=== PATIENT | male | born 1930 | race Caucasian/White ===

== ENCOUNTER 2020-07-06 18:36 | Observation (INO) | payer MEDICARE ==
[2020-07-06 18:51] LABS: Glucose,Whole Blood 148 mg/dL (75-99)
[2020-07-06] MEDS ORDERED: MORPHINE SULFATE 4 MG/ML SYRINGE IVP STA ×2 (18:52→18:53)
--- NOTE | 2020-07-06 19:48 | CT ---
EXAMINATION TYPE: CT angio thor/abd pel aorta DATE OF EXAM: 07/06/2020 COMPARISON: Same-day radiograph. HISTORY: chest pain, dissection CT DLP: 1113.5 mGycm. Automated Exposure Control for Dose Reduction was Utilized. CONTRAST: CTA scan of the thorax, abdomen and pelvis is performed without and with IV Contrast, patient injecte d with 100 mL of Isovue 370. MIPs , sagittal and coronal reformats were generated and reviewed. FINDINGS: CTA: There is mild thoracic aorta atherosclerotic disease without evidence of dissection, aneurysm or fracture. There is moderate atherosclerotic disease of the abdominal aorta without dissection, aneurysm or rupt ure. There is mild stenosis of the iliac arteries. Otherwise the celiac artery, SMA, WAYNE, renal and s plenic arteries are grossly intact. There is adequate opacity of the pulmonary arteries without evidence of embolus. LUNGS: The lungs are grossly clear, there is no concerning parenchymal mass or nodule identified. T here is no pleural effusion or pneumothorax seen. The tracheobronchial tree is patent. MEDIASTINUM: There are no greater than 1 cm hilar or mediastinal lymph nodes. No pericardial effusi on is seen. OTHER: No additional significant abnormality is seen. LIVER/GB: No acute abnormality is appreciated. Scattered few low attenuating hepatic foci without horace picious features and most compatible with benign cysts. The largest measure 1.4 cm. PANCREAS: No significant abnormality is seen. SPLEEN: No significant abnormality is seen. ADRENALS: No significant abnormality is seen. KIDNEYS: No acute abnormality is seen. Multiple benign bilateral renal cysts, with the largest measur ing 3.2 cm. BOWEL: No acute abnormality is seen. Colonic diverticulosis without acute diverticulitis. Prior righ t partial colectomy seen. GENITAL ORGANS: No gross abnormality seen. LYMPH NODES: No greater than 1cm abdominal or pelvic lymph nodes are appreciated. OSSEOUS STRUCTURES: No acute abnormality is seen. Moderate L2 compression deformity. Multilevel moder ate to severe lumbar spondylosis. Bilateral hip arthroplasties. OTHER: No significant additional abnormality is seen. IMPRESSION: No acute abnormality of the chest, abdomen or pelvic angiogram. Chronic and incidental findings as above.
--- NOTE | 2020-07-06 19:49 | XR ---
EXAMINATION TYPE: XR chest 1V portable DATE OF EXAM: 07/06/2020 COMPARISON: NONE HISTORY: Chest pain. TECHNIQUE: Single frontal view of the chest is obtained. FINDINGS: There is no focal air space opacity, pleural effusion, or pneumothorax seen. The cardiac silhouette size is within normal limits. The osseous structures are without acute abnormality. Bila teral shoulder arthroplasties seen. IMPRESSION: No acute process.
[2020-07-06 19:55] LABS: Basophils % (A) 1 %; Eosinophils # (A) 0.1 k/uL (0-0.7); Eosinophils % (A) 1 %; HCT 33.7 % (39.0-53.0); HGB 10.8 gm/dL (13.0-17.5); Hypochromasia Slight; Lymphocytes # (A) 2.1 k/uL (1.0-4.8); Lymphocytes % (A) 31 %; MCH 26.5 pg (25.0-35.0); MCHC 31.9 g/dL (31.0-37.0); MCV 82.8 fL (80.0-100.0); Monocytes % (A) 15 %; Neutrophils # (A) 3.4 k/uL (1.3-7.7); Neutrophils % (A) 50 %; Platelet Count 104 k/uL (150-450); RBC 4.07 m/uL (4.30-5.90); RDW 15.7 % (11.5-15.5); WBC 6.8 k/uL (3.8-10.6)
[2020-07-06] MEDS ORDERED: ASPIRIN 81 MG PO STA (20:02)
[2020-07-06 20:04] LABS: Calcium 9.1 mg/dL (8.4-10.2); Magnesium 2.1 mg/dL (1.6-2.3); Potassium 4.2 mmol/L (3.5-5.1)
[2020-07-06 20:05] LABS: Albumin 4.4 g/dL (3.5-5.0); Total Bilirubin 0.4 mg/dL (0.2-1.3); Total Protein 8.6 g/dL (6.3-8.2)
[2020-07-06 20:07] LABS: INR 0.9 (<1.2); Partial Thromboplastin Time 22.7 sec (22.0-30.0); Prothrombin Time 10.1 sec (9.0-12.0)
--- NOTE | 2020-07-06 20:40 | ED ---
Chest Pain HPI - General Chief Complaint: Chest Pain Stated Complaint: MARISOL Time Seen by Provider: 07/06/20 18:51 Source: patient Mode of arrival: ambulatory Limitations: no limitations - History of Present Illness Initial Comments: Is an 89-year-old male with a history of hypertension, hyperlipidemia, diabetes, smoking of present emergency department for chest pain. He states it started about an hour ago. It's substernal and sharp and nonradiating. He states that 10 out of 10. He states he is also been having some shortness of breath. States that this started suddenly. He denies any cough. No fevers or chills. No history of CAD per the patient. No history of PE or DVT. No lower Chevys pain or swelling. On arrival the patient was very diaphoretic and appeared very uncomfortable. He required my immediate attention on arrival. - Related Data Home Medications Medication Instructions Recorded Confirmed Aspirin EC [Ecotrin Low Dose] 81 mg PO DAILY 07/06/20 07/06/20 Enalapril Maleate 2.5 mg PO DAILY 07/06/20 07/06/20 Furosemide [Lasix] 20 mg PO DAILY 07/06/20 07/06/20 Omeprazole 20 mg PO DAILY 07/06/20 07/06/20 Simvastatin [Zocor] 20 mg PO HS 07/06/20 07/06/20 glipiZIDE XL [Glucotrol Xl] 10 mg PO DAILY 07/06/20 07/06/20 Allergies Allergy/AdvReac Type Severity Reaction Status Date / Time Penicillins Allergy Anaphylaxis Verified 07/06/20 20:43 Review of Systems ROS Statement: Those systems with pertinent positive or pertinent negative responses have been documented in the HPI. ROS Other: All systems not noted in ROS Statement are negative. EKG Findings - EKG Comments: EKG Findings:: EKG showing normal sinus rhythm with rate 77. There is no abnormally 7 changes or T-wave inversions. QTC is 454. Other intervals normal. No ectopy. Past Medical History Past Medical History: Asthma, Hypertension History of Any Multi-Drug Resistant Organisms: None Reported Past Surgical History: Orthopedic Surgery Past Psychological History: No Psychological Hx Reported Smoking Status: Current every day smoker Past Alcohol Use History: None Reported Past Drug Use History: None Reported General Exam - General Exam Comments Initial Comments: Constitutional: [Awake alert] Appears uncomfortable and diaphoretic Head: [Normocephalic atraumatic] Eyes: [no conjunctival injection] [No scleral icterus] [EOMI] Neck: [No JVD] [Supple] Heart: [Regular rate rhythm] [normal S1-S2] [no murmurs] Lungs: [Clear to auscultation bilaterally] [No wheezing] [No rales] Abdomen: [Soft] [nondistended] [nontender] Extremities: [Non edematous] DP and radial pulses were intact bilaterally and equal Neuro: [A&Ox3] [No focal neurologic deficits] Psych: [Appropriate mood and affect] Limitations: no limitations Course Vital Signs 07/06/20 18:38 Temperature 98.4 F Pulse Rate 77 Respiratory 18 Rate Blood Pressure 172/72 O2 Sat by Pulse 100 Oximetry Chest Pain MDM - MDM Is an 89-year-old male who presents emergency department for chest pain. The patient was evaluated urgently upon arrival. EKG did not reveal any evidence for STEMI. The patient was sent him for CT which did not reveal any evidence for dissection. The patient was given morphine and started on oxygen with improvement in his symptoms per troponin was found to be negative. He was given aspirin. I spoke with Dr. Bustamante due to his risk factors were going to keep him in the hospital for further evaluation. Family is requesting Dr. Anne for cardiology. Disposition Clinical Impression: Chest pain Disposition: ADMITTED IP TO THIS HOSP Condition: Stable Referrals: Joey Zaragoza MD [Primary Care Provider] - 1-2 days
[2020-07-06] MEDS ORDERED: NITROGLYCERIN SL TABS 0.4 MG TAB SUBLINGUAL PRN (20:46)
[2020-07-06 22:44] LABS: Glucose,Whole Blood 144 mg/dL (75-99)
[2020-07-06] MEDS: INSULIN ASPART (NovoLOG) 100 UNIT/ML VIAL SQ SCH (22:56)
[2020-07-06] MEDS: ATORVASTATIN 10 MG TAB PO SCH (22:56)
[2020-07-07 06:24] LABS: Cholesterol 97 mg/dL (<200); HDL Cholesterol 36 mg/dL (40-60); LDL Cholesterol,Calculated 38 mg/dL (0-99); Triglycerides 117 mg/dL (<150)
[2020-07-07 07:29] LABS: Glucose,Whole Blood 144 mg/dL (75-99)
[2020-07-07] MEDS: INSULIN ASPART (NovoLOG) 100 UNIT/ML VIAL SQ SCH ×4 (07:53→20:18)
[2020-07-07] MEDS: ASPIRIN 81 MG PO SCH (07:55)
[2020-07-07] MEDS: FUROSEMIDE 20 MG TAB PO SCH (07:58)
[2020-07-07] MEDS: lisinopriL 5 MG TAB PO SCH (07:58)
[2020-07-07] MEDS: PANTOPRAZOLE 40 MG TABLET PO SCH (07:58)
[2020-07-07] MEDS ORDERED: NON FORMULARY DRUG (Glipizide Xl 10 MG Tab.Er.24) PO SCH (09:00)
[2020-07-07] MEDS ORDERED: ASPIRIN 325 MG TAB PO SCH (09:00)
--- NOTE | 2020-07-07 10:01 | P.CRDCN ---
History of Present Illness History of present illness: HISTORY OF PRESENTING ILLNESS This is a pleasant 89-year-old male past medical history significant for asthma, diabetes mellitus, hypertension, colon cancer and chronic nicotine dependence. 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 We have been asked to see in consultation for chest pain. The patient is seen and examined sitting up in bed in no acute distress. He states for the previous 2 days he has been experiencing shortness of breath. He states it feels like he cannot take in a deep breath and he has an associated tightness in the midsternal region like someone is wrapping around and squeezing his entire torso. He states the chest discomfort happens when he is trying to catch his breath. The chest pain does not radiate through to the back, down the arms, into the neck or the jaw. He denies associated palpitations, nausea, vomiting or diaphoresis. However the emergency department note states that when he arrived at the hospital yesterday he was complaining of 10 out of 10 pain and was diaphoretic. DIAGNOSTICS EKG reveals sinus mechanism with no acute ST or T wave abnormalities noted. Telemetry tracings indicate sinus mechanism with no acute arrhythmias. Chest xray negative for an acute cardiopulmonary process. CT of the thoracic aorta revealed mild thoracic atherosclerotic disease with no evidence of dissection, aneurysm or rupture. Mild stenosis noted at the iliac arteries and lungs are grossly clear. Laboratory reviewed, cardiac enzymes negative 3, LDL 38, HDL 36, CBC unremarka ble, sodium 138, potassium 4.2, creatinine 1.01, proBNP 138 and magnesium 2.1. Current cardiac medications include Lasix 20 mg daily, simvastatin 20 mg daily, enalapril 2.5 mg daily and aspirin 81 mg daily. REVIEW OF SYSTEMS At the time of my exam: CONSTITUTIONAL: Denies fever or chills. CARDIOVASCULAR: Denies chest pain, shortness of breath, orthopnea, PND or palpitations. RESPIRATORY: Denies cough. GASTROINTESTINAL: Denies abdominal pain, diarrhea, constipation, nausea or vomiting. MUSCULOSKELETAL: Denies myalgias. NEUROLOGIC: Denies numbness, tingling, headacbe or weakness. ENDOCRINE: Denies fatigue, weight change, polydipsia or polyurina. GENITOURINARY: Denies burning, hematuria or urgency with micturation. HEMATOLOGIC: Denies history of anemia or bleeding. PHYSICAL EXAMINATION Blood pressure 120/65 heart rate 65 afebrile and maintaining oxygen saturation on nasal cannula CONSTITUTIONAL: No apparent distress. HEENT: Head is normocephalic. Pupils are equal, round. Sclerae anicteric. Mucous membranes of the mouth are moist. No JVD. No carotid bruit. CHEST EXAMINATION: Inspiratory and expiratory wheezes, scattered rhonchi with no rales. No chest wall tenderness is noted on palpation or with deep breathing. HEART EXAMINATION: Regular rate and rhythm. S1, S2 heard. No murmurs, gallops or rub. ABDOMEN: Soft, nontender. Positive bowel sounds. EXTREMITIES: 2+ peripheral pulses, no lower extremity edema and no calf tenderness. NEUROLOGIC EXAMINATION: Patient is awake, alert and oriented x3. ASSESSMENT Chest pain, pleuritic in nature History of asthma Hypertension Dyslipidemia Diabetes mellitus Chronic daily cigar dependence PLAN An acute coronary event has been ruled out. Pain is atypical for angina. Likely related to underlying pulmonary disease. Obtain 2-D echocardiogram and Doppler study to assess cardiac structure and function. Continue aspirin, atorvastatin, Lasix and lisinopril as previously ordered. Consider initiation of updrafts or inhalers. Thank you kindly for this consultation. Nurse Practitioner note has been reviewed, I agree with a documented findings and plan of care. Patient was seen and examined. Past Medical History Past Medical History: Asthma, Diabetes Mellitus, Hypertension Additional Past Medical History / Comment(s): colon CA, gallstones removed, History of Any Multi-Drug Resistant Organisms: None Reported Past Surgical History: Orthopedic Surgery Additional Past Surgical History / Comment(s): hip, back, shoulder surgeries hernia repair, eye implants Past Anesthesia/Blood Transfusion Reactions: No Reported Reaction Past Psychological History: No Psychological Hx Reported Smoking Status: Current some day smoker Past Alcohol Use History: None Reported Past Drug Use History: None Reported Medications and Allergies Home Medications Medication Instructions Recorded Confirmed Type Aspirin EC [Ecotrin Low Dose] 81 mg PO DAILY 07/06/20 07/06/20 History Enalapril Maleate 2.5 mg PO DAILY 07/06/20 07/06/20 History Furosemide [Lasix] 20 mg PO DAILY 07/06/20 07/06/20 History Omeprazole 20 mg PO DAILY 07/06/20 07/06/20 History Simvastatin [Zocor] 20 mg PO HS 07/06/20 07/06/20 History glipiZIDE XL [Glucotrol Xl] 10 mg PO DAILY 07/06/20 07/06/20 History Allergies Allergy/AdvReac Type Severity Reaction Status Date / Time Penicillins Allergy Anaphylaxis Verified 07/06/20 20:43 Physical Exam Vitals: Vital Signs Temp Pulse Pulse Resp BP BP Pulse Ox 07/07/20 07:00 97.5 F L 65 17 120/65 99 07/07/20 02:00 97.8 F 60 18 127/66 100 07/06/20 21:24 97.7 F 67 18 140/74 99 07/06/20 21:03 98.0 F 65 18 139/84 98 07/06/20 18:38 98.4 F 77 18 172/72 100 Intake and Output 07/06/20 07/07/20 07/07/20 22:59 06:59 14:59 Other: Voiding Method Toilet Toilet # Voids 2 Weight 90.718 kg Results 07/06/20 19:01 07/06/20 19:01 Cardiac Enzymes 07/06/20 07/06/20 07/06/20 Range/Units 19:01 19:01 22:09 AST 29 (17-59) U/L Troponin I <0.012 <0.012 (0.000-0.034) ng/mL 07/07/20 Range/Units 00:42 AST (17-59) U/L Troponin I <0.012 (0.000-0.034) ng/mL Coagulation 07/06/20 Range/Units 19:01 PT 10.1 (9.0-12.0) sec APTT 22.7 (22.0-30.0) sec Lipids 07/07/20 Range/Units 05:14 Triglycerides 117 (<150) mg/dL Cholesterol 97 (<200) mg/dL HDL Cholesterol 36 L (40-60) mg/dL CBC 07/06/20 Range/Units 19:01 WBC 6.8 (3.8-10.6) k/uL RBC 4.07 L (4.30-5.90) m/uL Hgb 10.8 L (13.0-17.5) gm/dL Hct 33.7 L (39.0-53.0) % Plt Count 104 L (150-450) k/uL Comprehensive Metabolic Panel 07/06/20 Range/Units 19:01 Sodium 138 (137-145) mmol/L Potassium 4.2 (3.5-5.1) mmol/L Chloride 104 (98-107) mmol/L Carbon Dioxide 23 (22-30) mmol/L BUN 15 (9-20) mg/dL Creatinine 1.01 (0.66-1.25) mg/dL Glucose 146 H (74-99) mg/dL Calcium 9.1 (8.4-10.2) mg/dL AST 29 (17-59) U/L ALT 12 (4-49) U/L Alkaline Phosphatase 92 (38-126) U/L Total Protein 8.6 H (6.3-8.2) g/dL Albumin 4.4 (3.5-5.0) g/dL Current Medications Generic Name Dose Route Start Last Admin Trade Name Freq PRN Reason Stop Dose Admin Aspirin 81 mg 07/07/20 09:00 07/07/20 07:55 Aspirin 81 Mg PO Not Given DAILY JENNIFER Atorvastatin Calcium 10 mg 07/06/20 21:00 07/06/20 22:56 Atorvastatin 10 Mg Tab PO 10 mg HS JENNIFER Administration Furosemide 20 mg 07/07/20 09:00 07/07/20 07:58 Furosemide 20 Mg Tab PO 20 mg DAILY JENNIFER Administration Insulin Aspart 0 unit 07/06/20 22:45 07/07/20 07:53 Insulin Aspart (Novolog) 100 Unit/Ml Vial SQ Not Given ACHS [facility] Protocol Lisinopril 5 mg 07/07/20 09:00 07/07/20 07:58 Lisinopril 5 Mg Tab PO 5 mg DAILY JENNIFER Administration Nitroglycerin 0.4 mg 07/06/20 20:46 Nitroglycerin Sl Tabs 0.4 Mg Tab SUBLINGUAL Q5M PRN Chest Pain Pantoprazole Sodium 40 mg 07/07/20 07:30 07/07/20 07:58 Pantoprazole 40 Mg Tablet PO 40 mg [id number] JENNIFER Administration Intake and Output 07/06/20 07/07/20 07/07/20 22:59 06:59 14:59 Other: Voiding Method Toilet Toilet # Voids 2 Weight 90.718 kg 07/06/20 19:01 07/06/20 19:01
[2020-07-07] MEDS: methylPREDNISolone SOD SUCCI 40 MG/ML 1 ML VIAL IV SCH ×2 (11:30→20:18)
[2020-07-07] MEDS: ENOXAPARIN 40 MG/0.4 ML SYRINGE SQ SCH (11:31)
[2020-07-07 11:40] LABS: Glucose,Whole Blood 205 mg/dL (75-99)
--- NOTE | 2020-07-07 12:46 | ECHOF ---
Referral Reason:sob MEASUREMENTS -------- HEIGHT: 167.6 cm WEIGHT: 90.7 kg BP: 120/65 RVIDd: 3.1 cm (< 3.3) IVSd: 1.2 cm (0.6 - 1.1) LVIDd: 3.4 cm (3.9 - 5.3) LVPWd: 1.6 cm (0.6 - 1.1) IVSs: 1.7 cm LVIDs: 2.1 cm LVPWs: 1.8 cm LAESV Index (A-L): 11.63 ml/m Ao Diam: 3.7 cm (2.0 - 3.7) AV Cusp: 2.1 cm (1.5 - 2.6) MV E Shaun: 0.71 m/s MV DecT: 220 ms MV A Shaun: 1.10 m/s MV E/A Ratio: 0.64 RAP: 5.00 mmHg RVSP: 21.39 mmHg FINDINGS -------- Sinus rhythm. This was a technically adequate study. The left ventricular size is normal. There is mild concentric left ventricular hypertrophy. Overa ll left ventricular systolic function is normal with, an EF between 55 - 60 %. The diastolic fillin g pattern is normal for the age of the patient 13.41. The right ventricle is normal in size. Normal LA size by volume 22+/-6 ml/m2. The right atrial size is normal. Interatrial and interventricular septum intact. The aortic valve is trileaflet, and appears structurally normal. No aortic stenosis or regurgitation. The mitral valve is normal. There is trace mitral regurgitation. The tricuspid valve appears structurally normal. Mild tricuspid regurgitation present. There is n o evidence of pulmonary hypertension. The right ventricular systolic pressure, as measured by Doppl er, is 21.39mmHg. There is no pulmonic regurgitation present. The aortic root size is normal. IVC Not well visulized. There is no pericardial effusion. CONCLUSIONS -------- 1. This was a technically adequate study. 2. There is mild concentric left ventricular hypertrophy. 3. Overall left ventricular systolic function is normal with, an EF between 55 - 60 %. 4. Normal LA size by volume 22+/-6 ml/m2. 5. The aortic valve is trileaflet, and appears structurally normal. No aortic stenosis or regurgitati on. 6. There is trace mitral regurgitation. 7. Mild tricuspid regurgitation present. 8. There is no pericardial effusion. MOVIE EXTRA: Sybil Del Castillo RDCS
[2020-07-07] MEDS: BUDESONIDE 1 MG/2 ML NEBU INHALATION SCH ×2 (15:14→19:26)
[2020-07-07] MEDS: FORMOTEROL FUMARATE 20 MCG/2 ML NEBU INHALATION SCH ×2 (15:14→19:26)
[2020-07-07] MEDS: IPRATROPIUM-ALBUTEROL 3 ML NEB INHALATION SCH ×3 (15:14→19:26)
[2020-07-07 16:54] LABS: Glucose,Whole Blood 291 mg/dL (75-99)
[2020-07-07 20:16] LABS: Glucose,Whole Blood 267 mg/dL (75-99)
[2020-07-07] MEDS: ATORVASTATIN 10 MG TAB PO SCH (20:18)
--- NOTE | 2020-07-07 23:57 | P.HPIM ---
History of Present Illness H&P Date: 07/07/20 Chief Complaint: Chest pain History of presenting complaint: This is a pleasant 89-year-old patient of Dr. Valdemar Zaragoza. History is obtained by the [id number] at the bedside. Patient been getting short of breath on and off for quite some time. No edema. No fever no chills. No cough. Patient presented with more difficulty breathing. Questionable chest pressure. Patient other forgetful himself. Normally uses a walker to get about. Does smoke a cigar a day. Review of systems: GEN.: Tired EYES: None HEENT: Decreased hearing NECK: None RESPIRATORY: As above CARDIOVASCULAR: As above GASTROINTESTINAL: None GENITOURINARY: None MUSCULOSKELETAL: Joint pains LYMPHATICS: None HEMATOLOGICAL: None PSYCHIATRY: Forgetful NEUROLOGICAL: Uses a walker Past medical history to include: Asthma, diabetes, hypertension, colon cancer, gallstones Social history: Smokes a cigar daily. No alcohol. Retired. Lives with his son and [id number]. Family history: Reviewed, noncontributory to presentation Physical examination: VITAL SIGNS: 98.4, 77, 18, 139/84, 98% on 3 L GENERAL: BMI 32.3, laying in bed, awake. EYES: Pupils equal. Conjunctiva normal. HEENT: External appearance of nose and ears normal, oral cavity grossly normal decreased hearing. NECK: JVD not raised; masses not palpable. HEART: First and second heart sounds are normal; no edema. LUNGS:[ Respiratory rate increased, decreased breaths on probably expiration and wheezing. ABDOMEN: Soft, nontender, liver spleen not palpable, no masses palpable. PSYCH: [Patient is able to answer simple questions MUSCULAR skeletal: Evidence of OA. NEUROLOGICAL: Cranial nerves grossly intact; no facial asymmetry, power and sensation grossly intact. LYMPHATICS: No lymph nodes palpable in the axilla and neck INVESTIGATIONS, reviewed in the clinical context: 2-D echocardiogram-EF 55-60% Chest x-ray film personally reviewed by me-negative for infiltrate EKG tracing personally reviewed by me-normal sinus rhythm Thoracic outlet the computed tomography scan-nonspecific findings. Moderate L2 compression deformity. Severe lumbar spondylosis White count 6.8 hemoglobin 10.8 platelets 104 potassium 4.2 creatinine 1.04 Troponin I 3 negative Coronavirus P/Cr-not detected Assessment and plan: -Acute COPD exacerbation in a long-standing cigar smoker. We'll start the patient on DuoNeb, inhaled and IV steroids. 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 We'll send off for B12 TSH and iron studies -Diabetes mellitus type 2 on oral hypoglycemic. Follow Accu-Cheks. -Essential hypertension-continue Zestril -Hyperlipidemia continue with Lipitor -Chronic gait dysfunction uses a walker Care was discussed with the [id number] by the bedside. Hopefully the patient can be discharged by tomorrow. Questions were answered. Past Medical History Past Medical History: Asthma, Diabetes Mellitus, Hypertension Additional Past Medical History / Comment(s): colon CA, gallstones removed, History of Any Multi-Drug Resistant Organisms: None Reported Past Surgical History: Orthopedic Surgery Additional Past Surgical History / Comment(s): hip, back, shoulder surgeries hernia repair, eye implants Past Anesthesia/Blood Transfusion Reactions: No Reported Reaction Past Psychological History: No Psychological Hx Reported Smoking Status: Current some day smoker Past Alcohol Use History: None Reported Past Drug Use History: None Reported Medications and Allergies Home Medications Medication Instructions Recorded Confirmed Type Aspirin EC [Ecotrin Low Dose] 81 mg PO DAILY 07/06/20 07/06/20 History Enalapril Maleate 2.5 mg PO DAILY 07/06/20 07/06/20 History Furosemide [Lasix] 20 mg PO DAILY 07/06/20 07/06/20 History Omeprazole 20 mg PO DAILY 07/06/20 07/06/20 History Simvastatin [Zocor] 20 mg PO HS 07/06/20 07/06/20 History glipiZIDE XL [Glucotrol Xl] 10 mg PO DAILY 07/06/20 07/06/20 History Allergies Allergy/AdvReac Type Severity Reaction Status Date / Time Penicillins Allergy Anaphylaxis Verified 07/06/20 20:43 Physical Exam Vitals: Vital Signs Temp Pulse Pulse Resp BP BP Pulse Ox 07/07/20 07:00 97.5 F L 65 17 120/65 99 07/07/20 02:00 97.8 F 60 18 127/66 100 07/06/20 21:24 97.7 F 67 18 140/74 99 07/06/20 21:03 98.0 F 65 18 139/84 98 07/06/20 18:38 98.4 F 77 18 172/72 100 Intake and Output 07/06/20 07/07/20 07/07/20 22:59 06:59 14:59 Other: Voiding Method Toilet Toilet # Voids 2 Weight 90.718 kg Results CBC & Chem 7: 07/06/20 19:01 07/06/20 19:01 Labs: Abnormal Lab Results - Last 24 Hours (Table) 07/06/20 07/06/20 07/06/20 Range/Units 18:49 19:01 19:01 RBC 4.07 L (4.30-5.90) m/uL Hgb 10.8 L (13.0-17.5) gm/dL Hct 33.7 L (39.0-53.0) % RDW 15.7 H (11.5-15.5) % Plt Count 104 L (150-450) k/uL Glucose 146 H (74-99) mg/dL POC Glucose (mg/dL) 148 H (75-99) mg/dL Total Protein 8.6 H (6.3-8.2) g/dL HDL Cholesterol (40-60) mg/dL 07/06/20 07/07/20 07/07/20 Range/Units 22:42 05:14 07:28 RBC (4.30-5.90) m/uL Hgb (13.0-17.5) gm/dL Hct (39.0-53.0) % RDW (11.5-15.5) % Plt Count (150-450) k/uL Glucose (74-99) mg/dL POC Glucose (mg/dL) 144 H 144 H (75-99) mg/dL Total Protein (6.3-8.2) g/dL HDL Cholesterol 36 L (40-60) mg/dL Thrombosis Risk Factor Assmnt - Choose All That Apply Any of the Below Risk Factors Present?: Yes Each Factor Represents 1 point: Obesity (BMI >25) Other Risk Factors: Yes Each Risk Factor Represents 3 Points: Age 75 years or older Other congenital or acquired thrombophilia - If yes, enter type in comment: No Thrombosis Risk Factor Assessment Total Risk Factor Score: 4 Thrombosis Risk Factor Assessment Level: Moderate Risk
[2020-07-08] MEDS: methylPREDNISolone SOD SUCCI 40 MG/ML 1 ML VIAL IV SCH (04:29)
[2020-07-08 06:59] LABS: Glucose,Whole Blood 236 mg/dL (75-99)
[2020-07-08] MEDS: BUDESONIDE 1 MG/2 ML NEBU INHALATION SCH (07:15)
[2020-07-08] MEDS: FORMOTEROL FUMARATE 20 MCG/2 ML NEBU INHALATION SCH (07:15)
[2020-07-08] MEDS: IPRATROPIUM-ALBUTEROL 3 ML NEB INHALATION SCH ×2 (07:15→10:50)
[2020-07-08 07:40] VITALS: BP 126/72; RESP 17; TEMP 98.2
[2020-07-08] MEDS: FUROSEMIDE 20 MG TAB PO SCH (08:34)
[2020-07-08] MEDS: ASPIRIN 81 MG PO SCH (08:35)
[2020-07-08] MEDS: ENOXAPARIN 40 MG/0.4 ML SYRINGE SQ SCH (08:35)
[2020-07-08] MEDS: lisinopriL 5 MG TAB PO SCH (08:35)
[2020-07-08] MEDS: INSULIN ASPART (NovoLOG) 100 UNIT/ML VIAL SQ SCH (08:35)
[2020-07-08] MEDS: PANTOPRAZOLE 40 MG TABLET PO SCH (08:35)
[2020-07-08 10:05] LABS: Ferritin 37.5 ng/mL (22.0-322.0)
[2020-07-08 10:15] LABS: % Iron Saturation 7.39 (15.00-50.00)
--- NOTE | 2020-07-08 10:45 | P.PN ---
Subjective HISTORY OF PRESENTING ILLNESS This is a pleasant 89-year-old male past medical history significant for asthma, diabetes mellitus, hypertension, colon cancer and chronic nicotine dependence. Denies prior history of coronary artery disease and does not follow in the office with a register of deeds. He is seen and examined sitting up in bed in no acute distress. He has been started on updraft treatments and IV steroids and overall feels as though his breathing has improved. He denies any symptoms of chest discomfort, worsening shortness of breath, dizziness or palpitations. Blood pressure 126/72 heart rate 92 afebrile maintaining oxygen saturation on room air. Laboratory data reviewed, TSH 0.95. Echocardiogram obtained reveals preserved LV systolic function with ejection fraction 55-60% with mild tricuspid regurgitation. PHYSICAL EXAMINATION CONSTITUTIONAL: No apparent distress. HEENT: Head is normocephalic. Pupils are equal, round. Sclerae anicteric. Mucous membranes of the mouth are moist. No JVD. No carotid bruit. CHEST EXAMINATION: Expiratory wheezes, no rhonchi with no rales. No chest wall tenderness is noted on palpation or with deep breathing. HEART EXAMINATION: Regular rate and rhythm. S1, S2 heard. No murmurs, gallops or rub. EXTREMITIES: 2+ peripheral pulses, no lower extremity edema and no calf tender ness. ASSESSMENT Chest pain, pleuritic in nature History of asthma Hypertension Dyslipidemia Diabetes mellitus Chronic daily cigar dependence PLAN Stable for discharge from a cardiac perspective. Follow-up in the office with Dr. Gibson in 2 weeks. Nurse Practitioner note has been reviewed, I agree with a documented findings and plan of care. Patient was seen and examined. Objective - Vital Signs Vital signs: Vital Signs Temp 98.2 F 07/08/20 07:00 Pulse 92 07/08/20 07:54 Resp 17 07/08/20 07:54 BP 126/72 07/08/20 07:00 Pulse Ox 99 07/08/20 07:00 Intake & Output 07/07/20 07/08/20 07/08/20 18:59 06:59 18:59 Intake Total 400 Balance 400 Intake: Other 400 Other: Voiding Method Toilet Toilet Toilet # Voids 2 1 1 - Labs CBC & Chem 7: 07/06/20 19:01 07/06/20 19:01 Labs: Abnormal Lab Results - Last 24 Hours (Table) 07/07/20 07/07/20 07/07/20 Range/Units 11:39 16:53 20:14 POC Glucose (mg/dL) 205 H 291 H 267 H (75-99) mg/dL Iron (65-175) ug/dL % Saturation (15.00-50.00) 07/08/20 07/08/20 Range/Units 05:19 06:58 POC Glucose (mg/dL) 236 H (75-99) mg/dL Iron 26 L (65-175) ug/dL % Saturation 7.39 L (15.00-50.00)
[2020-07-08 11:01] VITALS: PULSE 93
[2020-07-08 11:12] LABS: Glucose,Whole Blood 326 mg/dL (75-99)
--- NOTE | 2020-07-08 23:03 | P.DS ---
Providers Date of admission: 07/06/20 20:48 Expected date of discharge: 07/08/20 Attending physician: Fred Bustamante Consults: 07/06/20 20:47 Consult Physician Urgent Consulting Provider: Isai Aguilar Consult Reason/Comments: Chest Pain Do you want consulting provider notified?: Already Contacted Primary care physician: Joey [facility]ago[facility] Course: Chief Complaint: Chest pain History of presenting complaint: This is a pleasant 89-year-old patient of Dr. Valdemar Zaragoza. History is obtained by the [id number] at the bedside. Patient been getting short of breath on and off for quite some time. No edema. No fever no chills. No cough. Patient presented with more difficulty breathing. Questionable chest pressure. Patient other forgetful himself. Normally uses a walker to get about. Does smoke a cigar a day. Admitted with COPD exacerbation. Treated with bronchodilators, burst of steroids. Seen by cardiology. Not for any further intervention. Today-breathing greatly improved. Feeling much better. Patient's daughter came to pick him up. Discussed with her. Knifeman: Dr. Gibson from cardiology Past medical history to include: Asthma, diabetes, hypertension, colon cancer, gallstones Social history: Smokes a cigar daily. No alcohol. Retired. Lives with his son and [id number]. Family history: Reviewed, noncontributory to presentation Physical examination: VITAL SIGNS: 98.2, 92, 17, 126/72, 99% on room air GENERAL: Sitting, chair, comfortable. EYES: Pupils equal. Conjunctiva normal. HEENT: External appearance of nose and ears normal, oral cavity grossly normal decreased hearing. NECK: JVD not raised; masses not palpable. HEART: First and second heart sounds are normal; no edema. LUNGS:[ Respiratory rate normal decreased breaths sounds. ABDOMEN: Soft, nontender, liver spleen not palpable, no masses palpable. PSYCH: [Patient is able to answer simple questions MUSCULAR skeletal: Evidence of OA. INVESTIGATIONS, reviewed in the clinical context: I and 26 TIBC 352% saturation 7.39 ferritin 37.5 B12 632 TSH 0.95 2-D echocardiogram-EF 55-60% Chest x-ray film personally reviewed by me-negative for infiltrate EKG tracing personally reviewed by me-normal sinus rhythm Thoracic outlet the computed tomography scan-nonspecific findings. Moderate L2 compression deformity. Severe lumbar spondylosis White count 6.8 hemoglobin 10.8 platelets 104 potassium 4.2 creatinine 1.04 Troponin I 3 negative Coronavirus P/Cr-not detected Assessment and plan: -Acute COPD exacerbation in a long-standing cigar smoker. He responded well to DuoNeb to steroids. 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 Mild iron deficiency anemia. Add iron supplement -Diabetes mellitus type 2 on oral hypoglycemic. Follow Accu-Cheks. -Essential hypertension-continue Zestril -Hyperlipidemia continue with Lipitor -Chronic gait dysfunction uses a walker Disposition: Home Patient Condition at Discharge: Stable Plan - Discharge Summary Discharge Rx Participant: No New Discharge Prescriptions: New Ipratropium-Albuterol Nebulize [Duoneb 0.5 mg-3 mg/3 ml Soln] 3 ml INHALATION BID #60 ml Atorvastatin [Lipitor] 10 mg PO HS #30 tab predniSONE 0 mg PO DIRECTED #10 tab Continue glipiZIDE XL [Glucotrol XL] 10 mg PO DAILY Omeprazole 20 mg PO DAILY Furosemide [Lasix] 20 mg PO DAILY Enalapril Maleate 2.5 mg PO DAILY Aspirin EC [Ecotrin Low Dose] 81 mg PO DAILY Discontinued Simvastatin [Zocor] 20 mg PO HS Discharge Medication List Aspirin EC [Ecotrin Low Dose] 81 mg PO DAILY 07/06/20 [History] Enalapril Maleate 2.5 mg PO DAILY 07/06/20 [History] Furosemide [Lasix] 20 mg PO DAILY 07/06/20 [History] Omeprazole 20 mg PO DAILY 07/06/20 [History] glipiZIDE XL [Glucotrol XL] 10 mg PO DAILY 07/06/20 [History] Atorvastatin [Lipitor] 10 mg PO HS #30 tab 07/08/20 [Rx] Ipratropium-Albuterol Nebulize [Duoneb 0.5 mg-3 mg/3 ml Soln] 3 ml INHALATION BID #60 ml 07/08/20 [Rx] predniSONE 0 mg PO DIRECTED #10 tab 07/08/20 [Rx] Follow up Appointment(s)/Referral(s): Joey Zaragoza MD [Primary Care Provider] - 1-2 days Lela Gibson MD [STAFF PHYSICIAN] - 2 Weeks [facility] [NON-STAFF] - As Needed Patient Instructions/Handouts: Chest Pain (DC), COPD (Chronic Obstructive Pulmonary Disease) (DC) Activity/Diet/Wound Care/Special Instructions: daughter with fern picker pt later today after work Discharge/Stand Alone Forms: Who Do I Call?, Help In The Home Discharge Disposition: HOME SELF-CARE
== END 2020-07-08 12:10 | disposition home or self-care (01) ==
LOC: EC 18:36 → UNDOADMIN 20:28 → 4SSUR 20:28 → 6NMEDSUR 20:48 → 4SSUR 21:16 → 6NMEDSUR 21:16
PROVIDERS: ADMIT Hospitalist; ATTEND Hospitalist
DX: J44.1 Chronic obstructive pulmonary disease with (acute) exacerbation (principal); F17.290 Nicotine dependence, other tobacco product, uncomplicated; H91.90 Unspecified hearing loss, unspecified ear; D50.9 Iron deficiency anemia, unspecified; D69.6 Thrombocytopenia, unspecified; R26.9 Unspecified abnormalities of gait and mobility; E11.9 Type 2 diabetes mellitus without complications; I10 Essential (primary) hypertension; E78.5 Hyperlipidemia, unspecified; Z85.038 Personal history of other malignant neoplasm of large intestine; R61 Generalized hyperhidrosis; Z87.19 Personal history of other diseases of the digestive system; E66.9 Obesity, unspecified; Z68.32 Body mass index [BMI] 32.0-32.9, adult; Z79.82 Long term (current) use of aspirin; Z79.899 Other long term (current) drug therapy; Z79.84 Long term (current) use of oral hypoglycemic drugs; Z88.0 Allergy status to penicillin; Z20.822 Contact with and (suspected) exposure to COVID-19
CPT/HCPCS: 96376 ×2; 96372 ×2; 96375; 93005 ×2; 96374; 99285; 36415; 94640 ×4; 94760; 93306; 86900; 86901; 83880; 80061; 80053; 84443; 82607; 82728; 83540; 83550; 83690; 83735; 84484 ×2; 85025; 85610; 85730; 86850; 87635; 71045; 71275; 74174; G0378 ×3; J2270; J2920 ×2; J1650 ×2; Q9967

== ENCOUNTER 2020-08-28 18:23 | Emergency (ER) | payer MEDICARE ==
[2020-08-28 18:33] VITALS: TEMP 98
[2020-08-28] MEDS ORDERED: ASPIRIN 81 MG PO STA (19:04)
[2020-08-28] MEDS ORDERED: NITROGLYCERIN SL TABS 0.4 MG TAB SUBLINGUAL STA (19:08)
[2020-08-28] MEDS ORDERED: MORPHINE SULFATE 2 MG/ML SYRINGE IVP STA (19:22)
--- NOTE | 2020-08-28 19:36 | ED ---
Extremity Problem HPI - General Chief complaint: Extremity Problem,Nontraumatic Stated complaint: Chest Pain/Arm Pain Time Seen by Provider: 08/28/20 19:03 Source: EMS Mode of arrival: EMS Limitations: no limitations - History of Present Illness Initial comments: 89yo male with hx of DM, HTN, asthma, daily cigar use, recent echo with EF >50%, no hx of stents/CAD, CTA is 07/18 no aneursyms of the chest presenting to the ER today for cc of left shoulder pain and left left sided chest pain. Pt states that today he developed left arm pain and pain over the left side of the chest that is sharp in nature, no radiation to the back-no pressure, no jaw pain, nausea, vomiting, abdominal pain, no leg or arm swelling or hemoptysis. Patient states his left arm also is very painful and he cannot lift it more than a few inches before extreme pain in the left shoulder. Denies falls or known trauma. Denies redness, fevers, recent surgeries. Patient does have history of previous left shoulder surgery. Patient states he was just lying in bed when this pain began. Patient denies experiencing this in the past. Patient states that the left arm also feeling tingly and funny. He denies vision/speech changes, leg weakness, headache, neck pain or additional complaints. Upon arrival pt tearful and appears uncomfortable. Patient has had recent exposure to covid 19. - Related Data Home Medications Medication Instructions Recorded Confirmed Aspirin EC [Ecotrin Low Dose] 81 mg PO DAILY 07/06/20 07/06/20 Enalapril Maleate 2.5 mg PO DAILY 07/06/20 07/06/20 Furosemide [Lasix] 20 mg PO DAILY 07/06/20 07/06/20 Omeprazole 20 mg PO DAILY 07/06/20 07/06/20 glipiZIDE XL [Glucotrol XL] 10 mg PO DAILY 07/06/20 07/06/20 Previous Rx's Medication Instructions Recorded Albuterol Inhaler [Ventolin Hfa 1 puff INHALATION RT-QID PRN #1 07/08/20 Inhaler] puff Atorvastatin [Lipitor] 10 mg PO HS #30 tab 07/08/20 Budesonide-Formot 160-4.5 Mcg 1 puff INHALATION BID #1 inhaler 07/08/20 [Symbicort 160-4.5 Mcg Inhaler] Ipratropium-Albuterol Nebulize 3 ml INHALATION BID #60 ml 07/08/20 [Duoneb 0.5 mg-3 mg/3 ml Soln] predniSONE 0 mg PO DIRECTED #10 tab 07/08/20 Allergies Allergy/AdvReac Type Severity Reaction Status Date / Time Penicillins Allergy Anaphylaxis Verified 08/28/20 18:33 Review of Systems ROS Statement: Those systems with pertinent positive or pertinent negative responses have been documented in the HPI. ROS Other: All systems not noted in ROS Statement are negative. Past Medical History Past Medical History: Asthma, Diabetes Mellitus, Hypertension Additional Past Medical History / Comment(s): colon CA, gallstones removed, History of Any Multi-Drug Resistant Organisms: None Reported Past Surgical History: Orthopedic Surgery Additional Past Surgical History / Comment(s): hip, back, shoulder surgeries hernia repair, eye implants Past Anesthesia/Blood Transfusion Reactions: No Reported Reaction Past Psychological History: No Psychological Hx Reported Smoking Status: Current every day smoker Past Alcohol Use History: None Reported Past Drug Use History: None Reported General Exam - General Exam Comments Initial Comments: General: The patient is awake and alert, in no distress Eye: +3 mm pupils are equal, round and reactive to light, extra-ocular movements are intact. No nystagmus. There is normal conjunctiva bilaterally. No signs of icterus. Ears, nose, mouth and throat: There are moist mucous membranes and no oral lesions. Neck: The neck is supple, there is no tenderness or JVD. Cardiovascular: There is a regular rate and rhythm. No murmur, rub or gallop is appreciated. Respiratory: Lungs are clear to auscultation, respirations are non-labored, breath sounds are equal. No wheezes, stridor, rales, or rhonchi. Gastrointestinal: Soft, non-distended, non-tender abdomen without masses or organomegaly noted. There is no rebound or guarding present. No CVA tenderness. No pulsatile masses Musculoskeletal: Etreme pain with overhead ROM, palpation to AC joint/upper humerus and over adjacent anterior chest wall. wincing with pain, cries out. scar over right shoulder no redness or swelling. Normal ROM, no tenderness. Strength 5/5 at digits/hand. Sensation slightly different in left arm in comparison with Radial pulses equal bilaterally 2+. Neurological: A&O x 3. CN II-XII intact grossly, There are no obvious motor or sensory deficits. Coordination appears grossly intact. Speech is normal. Skin: Skin is warm and dry and no rashes or lesions are noted. Psychiatric: Cooperative, appropriate mood & affect, normal judgment. Limitations: no limitations Course Vital Signs 08/28/20 08/28/20 08/28/20 18:28 20:00 21:00 Temperature 98.0 F Pulse Rate 70 71 63 Respiratory 20 18 18 Rate Blood Pressure 173/80 135/71 145/66 O2 Sat by Pulse 99 99 99 Oximetry 08/28/20 22:00 Temperature Pulse Rate 61 Respiratory 18 Rate Blood Pressure 113/61 O2 Sat by Pulse Oximetry - Reevaluation(s) Reevaluation #1: pt moving arm freely now, he states "i think it went back in". Patietn xr were negataive for dislocation. 08/28/20 22:35 Medical Decision Making - Medical Decision Making 89-year-old male presenting for left shoulder pain. On arrival patient refuses to even move arm and inch upward he states is very tender over the shoulder and upper humerus. Imaging studies reveal no acute osseous process. CT angiography no dissection or aneurysm. Patient's pain is very reproducible even to the chest wall. It appears very musculoskeletal by attending evaluate patient agrees. After the imaging patient states that the pain had resolved completely can fully move the arm and the pain had gone away. At this time given normal EKG normal cardiac enzyme with what appeared to be noncardiac related chest pain and arm pain patient be discharged with primary care follow-up and return for any worsening symptoms patient is agreeable to this care plan and prefers discharge at this time. Dr Arellano is agreeable to this care plan and discharge. Ventricular rate 68 bpm, RI interval 162 ms, QR christian 72 ms, QT/QTC 41 4/440 ms. This is normal sinus with no ST elevation or depression appreciated. - Lab Data Result diagrams: 08/28/20 19:13 08/28/20 19:13 Lab Results 08/28/20 08/28/20 08/28/20 Range/Units 19:13 19:13 19:13 WBC 5.0 (3.8-10.6) k/uL RBC 4.12 L (4.30-5.90) m/uL Hgb 10.8 L (13.0-17.5) gm/dL Hct 34.2 L (39.0-53.0) % MCV 82.8 (80.0-100.0) fL MCH 26.3 (25.0-35.0) pg MCHC 31.7 (31.0-37.0) g/dL RDW 16.0 H (11.5-15.5) % Plt Count 90 L (150-450) k/uL MPV 9.0 Neutrophils % 46 % Lymphocytes % 33 % Monocytes % 16 % Eosinophils % 2 % Basophils % 1 % Neutrophils # 2.3 (1.3-7.7) k/uL Lymphocytes # 1.6 (1.0-4.8) k/uL Monocytes # 0.8 (0-1.0) k/uL Eosinophils # 0.1 (0-0.7) k/uL Basophils # 0.0 (0-0.2) k/uL Manual Slide Review Performed Hypochromasia Slight Anisocytosis Slight Ovalocytes Present PT 10.1 (9.0-12.0) sec INR 0.9 (<1.2) APTT 22.8 (22.0-30.0) sec Sodium 137 (137-145) mmol/L Potassium 4.6 (3.5-5.1) mmol/L Chloride 108 H (98-107) mmol/L Carbon Dioxide 22 (22-30) mmol/L Anion Gap 7 mmol/L BUN 14 (9-20) mg/dL Creatinine 1.15 (0.66-1.25) mg/dL Est GFR (CKD-EPI)AfAm 65 (>60 ml/min/1.73 sqM) Est GFR (CKD-EPI)NonAf 57 (>60 ml/min/1.73 sqM) Glucose 104 H (74-99) mg/dL Calcium 9.4 (8.4-10.2) mg/dL Magnesium 1.9 (1.6-2.3) mg/dL Total Bilirubin 0.5 (0.2-1.3) mg/dL AST 34 (17-59) U/L ALT 18 (4-49) U/L Alkaline Phosphatase 120 (38-126) U/L Troponin I (0.000-0.034) ng/mL NT-Pro-B Natriuret Pep pg/mL Total Protein 8.5 H (6.3-8.2) g/dL Albumin 4.5 (3.5-5.0) g/dL Coronavirus (PCR) (Not Detectd) 08/28/20 08/28/20 08/28/20 Range/Units 19:13 19:13 19:33 WBC (3.8-10.6) k/uL RBC (4.30-5.90) m/uL Hgb (13.0-17.5) gm/dL Hct (39.0-53.0) % MCV (80.0-100.0) fL MCH (25.0-35.0) pg MCHC (31.0-37.0) g/dL RDW (11.5-15.5) % Plt Count (150-450) k/uL MPV Neutrophils % % Lymphocytes % % Monocytes % % Eosinophils % % Basophils % % Neutrophils # (1.3-7.7) k/uL Lymphocytes # (1.0-4.8) k/uL Monocytes # (0-1.0) k/uL Eosinophils # (0-0.7) k/uL Basophils # (0-0.2) k/uL Manual Slide Review Hypochromasia Anisocytosis Ovalocytes PT (9.0-12.0) sec INR (<1.2) APTT (22.0-30.0) sec Sodium (137-145) mmol/L Potassium (3.5-5.1) mmol/L Chloride (98-107) mmol/L Carbon Dioxide (22-30) mmol/L Anion Gap mmol/L BUN (9-20) mg/dL Creatinine (0.66-1.25) mg/dL Est GFR (CKD-EPI)AfAm (>60 ml/min/1.73 sqM) Est GFR (CKD-EPI)NonAf (>60 ml/min/1.73 sqM) Glucose (74-99) mg/dL Calcium (8.4-10.2) mg/dL Magnesium (1.6-2.3) mg/dL Total Bilirubin (0.2-1.3) mg/dL AST (17-59) U/L ALT (4-49) U/L Alkaline Phosphatase (38-126) U/L Troponin I <0.012 (0.000-0.034) ng/mL NT-Pro-B Natriuret Pep 131 pg/mL Total Protein (6.3-8.2) g/dL Albumin (3.5-5.0) g/dL Coronavirus (PCR) Not Detected (Not Detectd) Disposition Clinical Impression: Musculoskeletal arm pain Disposition: HOME SELF-CARE Condition: Good Instructions (If sedation given, give patient instructions): Arm Pain (ED) Additional Instructions: Please use medication as discussed. Please follow-up with family doctor in the next 2 days. Please return to emergency room if the symptoms increase or worsen or for any other concerns. Is patient prescribed a controlled substance at d/c from ED?: No Referrals: Joey Zaragoza MD [Primary Care Provider] - 1-2 days Time of Disposition: 22:30
[2020-08-28 19:44] LABS: Anisocytosis Slight; Basophils % (A) 1 %; Eosinophils # (A) 0.1 k/uL (0-0.7); Eosinophils % (A) 2 %; HCT 34.2 % (39.0-53.0); HGB 10.8 gm/dL (13.0-17.5); Hypochromasia Slight; Lymphocytes # (A) 1.6 k/uL (1.0-4.8); Lymphocytes % (A) 33 %; MCH 26.3 pg (25.0-35.0); MCHC 31.7 g/dL (31.0-37.0); MCV 82.8 fL (80.0-100.0); Monocytes # (A) 0.8 k/uL (0-1.0); Monocytes % (A) 16 %; Neutrophils # (A) 2.3 k/uL (1.3-7.7); Neutrophils % (A) 46 %; RBC 4.12 m/uL (4.30-5.90)
[2020-08-28 19:48] LABS: Albumin 4.5 g/dL (3.5-5.0); Calcium 9.4 mg/dL (8.4-10.2); Magnesium 1.9 mg/dL (1.6-2.3); Potassium 4.6 mmol/L (3.5-5.1); Total Bilirubin 0.5 mg/dL (0.2-1.3); Total Protein 8.5 g/dL (6.3-8.2)
[2020-08-28 19:56] LABS: INR 0.9 (<1.2); Partial Thromboplastin Time 22.8 sec (22.0-30.0); Prothrombin Time 10.1 sec (9.0-12.0)
--- NOTE | 2020-08-28 20:03 | XR ---
EXAMINATION TYPE: XR shoulder complete LT DATE OF EXAM: 08/28/2020 COMPARISON: NONE HISTORY: Shoulder pain TECHNIQUE: 3 views FINDINGS: There is left shoulder prosthesis. Components appear in anatomic position. I see no fractur e nor dislocation. IMPRESSION: No acute abnormality of the left shoulder.
--- NOTE | 2020-08-28 20:04 | XR ---
EXAMINATION TYPE: XR chest 2V DATE OF EXAM: 08/28/2020 COMPARISON: 07/06/2020 HISTORY: Fall. Chest pain. TECHNIQUE: 2 views FINDINGS: There is no heart failure nor confluent pneumonic infiltrate. Costophrenic angles are clear . The bony thorax is intact. There is no thoracic compression fracture. There is no pleural effusion or pneumothorax. IMPRESSION: No active cardiopulmonary disease. No change.
[2020-08-28 20:08] VITALS: RESP 18
[2020-08-28 21:47] LABS: Ovalocytes Present
[2020-08-28 21:50] LABS: Platelet Count 90 k/uL (150-450)
--- NOTE | 2020-08-28 21:52 | XR ---
EXAMINATION TYPE: XR humerus LT DATE OF EXAM: 08/28/2020 COMPARISON: NONE HISTORY: Pain TECHNIQUE: 2 views FINDINGS: I see no fracture nor dislocation. Joint spaces are normal. There is left shoulder prosthes is. Components appear intact. IMPRESSION: No acute abnormality of the left humerus.
--- NOTE | 2020-08-28 22:26 | CT ---
EXAMINATION TYPE: CT angio thor/abd pel aorta DATE OF EXAM: 08/28/2020 COMPARISON: 07/06/2020 HISTORY: Chest pain radiating down left arm. CT DLP: 1348.6 mGycm Automated exposure control for dose reduction was used. CONTRAST: Performed with IV Contrast, patient injected with 80ml mL of Isovue 370. Images obtained from the thoracic inlet to the floor the pelvis with IV contrast. There are 3-D post processed images. There is some interstitial increased density in the posterior lung luna consistent with scarring an d subsegmental atelectasis. There is no pneumothorax. Thoracic aorta is intact. There is no aneurysm. There is no dissection. Pulmonary arteries appear intact. There is no mediastinal adenopathy. There is arterial flow in the celiac artery and superior mesenteric artery. There is arterial flow in both renal arteries. There is arterial flow in the iliac and femoral arteries. I see no evidence of hemodynamic stenosis. There is mild plaque formation. There is no aneurysm or dissection. There are multiple sigmoid diverticula. There is no diverticulitis. Bladder distends smoothly. There is metal artifact from bilateral hip prosthesis. There is no mesenteric edema. There is no ascites or free air. Kidneys show satisfactory contrast opa cification. There bilateral multiple cortical cysts that measure up to 5 cm. There is no hydronephros is. Ureters are not dilated. There is no retroperitoneal adenopathy. There are some low-density scattered foci in the liver that measure up to 2 cm. Spleen is intact. The re is no pancreatic mass. The stomach is intact. There are clips from cholecystectomy. The thoracic a nd lumbar spine show multilevel spondylotic changes. This is more severe in the lumbar spine. There i s 20% depression of the superior endplate of L2 vertebra that appears old. IMPRESSION: No significant angiographic abnormality. No aneurysm or dissection. No evidence of pulmonary embolism . Low-density liver lesions are probably cysts and could be confirmed with ultrasound. No change compar ed to old exam.
[2020-08-28 22:29] VITALS: BP 113/61; PULSE 61
== END 2020-08-28 22:55 | disposition home or self-care (01) ==
LOC: EC 18:23
DX: M79.602 Pain in left arm (principal); M25.512 Pain in left shoulder; R07.89 Other chest pain; J45.909 Unspecified asthma, uncomplicated; E11.9 Type 2 diabetes mellitus without complications; I10 Essential (primary) hypertension; F17.200 Nicotine dependence, unspecified, uncomplicated; Z20.822 Contact with and (suspected) exposure to COVID-19; Z79.82 Long term (current) use of aspirin; Z79.51 Long term (current) use of inhaled steroids; Z79.84 Long term (current) use of oral hypoglycemic drugs; Z88.0 Allergy status to penicillin
CPT/HCPCS: 99285 ×2; 96374 ×2; 36415; 93005; 83880; 80053; 83735; 84484; 85025; 85610; 85730; 87635; 73030; 73060; 71046; 71275; 74174; J2270; Q9967

== ENCOUNTER → 2020-12-22 | Outpatient (CLI) | payer MEDICARE ==
--- NOTE | 2020-12-23 05:35 | MR ---
EXAMINATION TYPE: MR brain wo/w con DATE OF EXAM: 12/22/2020 COMPARISON: None HISTORY: Pain behind eyes, double vision, hearing loss left and right side, weakness left and right s jerome of body, history of colon cancer CONTRAST: Standard multiplanar, multisequence MRI departmental protocol utilizing 8.5 mL intravenous Gadavist g adolinium contrast. There is moderately severe diffuse cerebral atrophy. There is no mass effect nor midline shift. There is no sign of intracranial hemorrhage. There is enlargement of the ventricles. There is periventricu lar mild white matter edema. The brainstem is intact. Cerebellum is intact. Diffusion images show no evidence of an acute infarct. The globes are symmetric. There is significant thinning of the corpus c allosum. IMPRESSION: Advanced atrophy and mild hydrocephalus. No acute intracranial abnormality.
== END | disposition home or self-care (01) ==
LOC: RADMRIMAIN 16:48
PROVIDERS: ATTEND Ophthalmology
DX: G31.9 Degenerative disease of nervous system, unspecified (principal); G91.9 Hydrocephalus, unspecified
CPT/HCPCS: 70553; A9585

== ENCOUNTER 2020-12-30 11:16 | Emergency (ER) | payer MEDICARE ==
[2020-12-30] MEDS ORDERED: Acetaminophen-Codeine 300-30mg TAB PO STA (11:32)
--- NOTE | 2020-12-30 11:34 | ED ---
Upper Extremity HPI - General Chief Complaint: Extremity Injury, Upper Stated Complaint: fall, rt arm injury Time Seen by Provider: 12/30/20 11:23 Source: patient Mode of arrival: ambulatory Limitations: no limitations - History of Present Illness Initial Comments: 89-year-old male presents to the emergency department with a chief complaint of a fall. He is also present with his daughter who states the patient fell yesterday around 9 PM. Status was a mechanical trip and fall and he went forward, caught his right arm under his body. There was also head injury but no loss of consciousness. Patient is not currently blood thinners but is known to bruise easily. Patient states most of his pain is located in the right elbow and the humeral region. States there is ecchymosis and swelling at the right elbow. Also reports right shoulder pain where he has had previous surgery. Denies any paresthesias. Patient requesting Tylenol 3 for pain. - Related Data Home Medications Medication Instructions Recorded Confirmed Aspirin EC [Ecotrin Low Dose] 81 mg PO DAILY 07/06/20 12/30/20 Enalapril Maleate 2.5 mg PO DAILY 07/06/20 12/30/20 Furosemide [Lasix] 20 mg PO DAILY 07/06/20 12/30/20 Omeprazole 20 mg PO DAILY 07/06/20 12/30/20 glipiZIDE XL [Glucotrol XL] 10 mg PO BID 07/06/20 12/30/20 Atorvastatin [Lipitor] 10 mg PO DAILY 12/30/20 12/30/20 EPINEPHrine (Auto Inject) [Epipen] 0.3 mg IM ONCE PRN 12/30/20 12/30/20 Ipratropium-Albuterol Nebulize 3 ml INHALATION RT-QID PRN 12/30/20 12/30/20 [Duoneb 0.5 mg-3 mg/3 ml Soln] prednisoLONE ACETATE 1% OPHTH 1 drop LEFT EYE TID 12/30/20 12/30/20 [Pred Forte 1%] Allergies Allergy/AdvReac Type Severity Reaction Status Date / Time Penicillins Allergy Anaphylaxis Verified 12/30/20 12:52 Review of Systems ROS Statement: Those systems with pertinent positive or pertinent negative responses have been documented in the HPI. ROS Other: All systems not noted in ROS Statement are negative. Past Medical History Past Medical History: Asthma, Diabetes Mellitus, Hypertension Additional Past Medical History / Comment(s): colon CA, gallstones removed, History of Any Multi-Drug Resistant Organisms: None Reported Past Surgical History: Orthopedic Surgery Additional Past Surgical History / Comment(s): hip, back, shoulder surgeries hernia repair, eye implants Past Anesthesia/Blood Transfusion Reactions: No Reported Reaction Past Psychological History: No Psychological Hx Reported Smoking Status: Current every day smoker Past Alcohol Use History: None Reported Past Drug Use History: None Reported General Exam Limitations: no limitations General appearance: alert, in no apparent distress Head exam: Present: atraumatic, normocephalic, normal inspection. Absent: other (Negative Renee sign, raccoon eyes, hemotympanum.) Eye exam: Present: normal appearance, PERRL, EOMI Pupils: Present: normal accommodation ENT exam: Present: normal exam, normal oropharynx, mucous membranes moist Neck exam: Present: normal inspection, full ROM. Absent: tenderness, lymphadenopathy Respiratory exam: Present: normal lung sounds bilaterally. Absent: respiratory distress, wheezes, rales Cardiovascular Exam: Present: regular rate, normal rhythm, normal heart sounds. Absent: systolic murmur Extremities exam: Present: tenderness (Right upper arm tenderness), normal capillary refill, other (Palpable ulnar and radial pulses bilaterally). Absent: normal inspection (Swelling noted at the right elbow), full ROM (Limited range of motion on the right elbow), pedal edema, joint swelling Back exam: Present: normal inspection, full ROM. Absent: tenderness Neurological exam: Present: alert, oriented X3 Psychiatric exam: Present: normal affect, normal mood Skin exam: Present: warm, dry, intact, normal color Course Vital Signs 12/30/20 11:17 Temperature 97.9 F Pulse Rate 67 Respiratory 16 Rate Blood Pressure 144/69 O2 Sat by Pulse 96 Oximetry Medical Decision Making - Medical Decision Making 89-year-old male presents to the emergency department with a chief complaint of a fall. On physical examination, limited range of motion, swelling and ecchymosis at the right elbow. He is otherwise neurovascularly intact. X-rays obtained of the shoulder humerus and the elbow are unremarkable. CT of the brain and C-spine shows no acute fractures, dislocations, intracranial hemorrhage or any space-occupying lesions. Patient was given Tylenol 3 per request. We'll give him a starter pack. Sling applied. Advised to follow-up with senior communications specialist. Return parameters were discussed with patient and daughter who understating agreeable. Case discussed with physician. Disposition Clinical Impression: Contusion of right elbow, Fall, Head injury Disposition: HOME SELF-CARE Condition: Stable Instructions (If sedation given, give patient instructions): Elbow Sprain (ED) Additional Instructions: follow with senior communications specialist. Return to emergency department if symptoms worsen. Is patient prescribed a controlled substance at d/c from ED?: No Referrals: Joey Zaragoza MD [Primary Care Provider] - 1-2 days Bhavin Montes De Oca MD [STAFF PHYSICIAN] - 1-2 days Time of Disposition: 13:05
--- NOTE | 2020-12-30 12:29 | XR ---
EXAMINATION TYPE: XR shoulder complete RT, XR humerus RT, XR elbow complete RT DATE OF EXAM: 12/30/2020 CLINICAL HISTORY: Fall injury with pain. TECHNIQUE: Three views of the right shoulder and elbow are obtained. 2 views right humerus. COMPARISON: Chest x-ray August 28, 2020 FINDINGS: [place] osseous structures are demineralized. Metallic right shoulder prosthesis is satisfac tory in position. Images of the right humerus show no acute fracture or dislocation. Visualized ribs are intact. Images of the right elbow show focal mild to moderate subcutaneous edema over the radial aspect. Ther e is ossification near the olecranon tip. No abnormal fat pad signs. No acute displaced fracture. IMPRESSION: There is no acute fracture or dislocation in the right elbow, humerus, or shoulder.
--- NOTE | 2020-12-30 12:45 | CT ---
EXAMINATION TYPE: CT brain venus dewey DATE OF EXAM: 12/30/2020 COMPARISON: None HISTORY: fall, head injury CT DLP: 1278.7 mGycm, Automated exposure control for dose reduction was used. CONTRAST: Patient injected with 0 mL of Isovue 300. CT of the brain is performed utilizing 3 mm thick sections through the posterior fossa and 3 mm thick sections through the remaining calvarium. Study is performed within 24 hours of arrival to the hospital. No abnormal hyperdensity is present to suggest an acute intracranial hemorrhage. No mass lesion is evident. No acute infarcts are evident. Periventricular white matter hypodensity is present, likely on the ba sis of chronic white matter ischemic changes. Ventricles and sulci are prominent for the patient age. There is a patent cavum septum lucidum and c avum vergae, normal variants. Extra-axial spaces are prominent. Paranasal sinuses within the [id number] are clear. IMPRESSIONS: 1. Atrophy with periventricular white matter ischemic-type changes. CT cervical spine. COMPARISON: None CT of the cervical spine is performed in the axial plane at 2 mm thick sections. Reconstructed image s in the coronal, and sagittal plane are reviewed on the computer. No acute fractures are evident. There is slight kyphosis within the thoracic oh cervical junction. Other is diffuse loss of disc height throughout the cervical spine. This is greatest at C5-6 C6-7. Sp ondylosis is present C5-T1. Vertebral body heights are preserved. Some posterior endplate spurring is present C5-6 C6-7 and C7-T1. Neural foraminal stenosis from uncovertebral joint hypertrophy is present within the cervical spine t his includes moderate narrowing on the left at C2-3 severe narrowing on the left at C3-4 and moderate narrowing on the right at C3-4 severe narrowing on the left at C4-5, severe narrowing bilaterally at C5-6 and C6-7. Endplate spurring is evident with mild anterior thecal sac compression. No AP spinal canal stenosis is present. IMPRESSIONS: 1. Advanced uncovertebral joint hypertrophy contributing to multilevel severe foraminal stenosis disc ussed above. 2. Degenerative disc changes are greater within the lower cervical spine. 3. Spondylosis. 4. No acute fractures evident
[2020-12-30] MEDS ORDERED: ACET/COD 300 MG/30 MG STARTER PACK 6 TAB BTL PO STA (13:03)
[2020-12-30 13:29] VITALS: BP 138/88; PULSE 72; RESP 17; TEMP 97.7
== END 2020-12-30 13:17 | disposition home or self-care (01) ==
LOC: EC 11:16
DX: S50.01XA Contusion of right elbow, initial encounter (principal); S09.90XA Unspecified injury of head, initial encounter; M25.511 Pain in right shoulder; J45.909 Unspecified asthma, uncomplicated; E11.9 Type 2 diabetes mellitus without complications; I10 Essential (primary) hypertension; F17.200 Nicotine dependence, unspecified, uncomplicated; Z88.0 Allergy status to penicillin; Z79.82 Long term (current) use of aspirin; Z79.899 Other long term (current) drug therapy; Z79.51 Long term (current) use of inhaled steroids; Z79.84 Long term (current) use of oral hypoglycemic drugs; W01.0XXA Fall on same level from slipping, tripping and stumbling without subsequent striking against object, initial encounter; Y92.89 Other specified places as the place of occurrence of the external cause
CPT/HCPCS: 70450; 72125; 99284

== ENCOUNTER 2021-01-27 19:54 | Emergency (ER) | payer MEDICARE ==
[2021-01-27 21:15] VITALS: RESP 18
--- NOTE | 2021-01-27 22:46 | ED ---
Skin/Abscess/FB HPI - General Chief complaint: Skin/Abscess/Foreign Body Stated complaint: Possible Abscess on Neck Time Seen by Provider: 01/27/21 22:18 Source: patient Mode of arrival: wheelchair - History of Present Illness Initial comments: 89-year-old male presents with his daughter for possible abscess in the neck. Daughter states the patient was evaluated yesterday and the primary care physician believes the patient may have shingles and he was started on famciclovir and Keflex. A biopsy was obtained from the lesion on the left side of his neck. Daughter states there was some swelling which has since mostly resolved on the left side of the neck. She states the patient complained of some discharge from the wound today so they contacted the primary care physician again who advised him to come to emergency department in order to rule out an abscess. She states the patient has not any fevers at home. - Related Data Home Medications Medication Instructions Recorded Confirmed Aspirin EC [Ecotrin Low Dose] 81 mg PO DAILY 07/06/20 12/30/20 Enalapril Maleate 2.5 mg PO DAILY 07/06/20 12/30/20 Furosemide [Lasix] 20 mg PO DAILY 07/06/20 12/30/20 Omeprazole 20 mg PO DAILY 07/06/20 12/30/20 glipiZIDE XL [Glucotrol XL] 10 mg PO BID 07/06/20 12/30/20 Atorvastatin [Lipitor] 10 mg PO DAILY 12/30/20 12/30/20 EPINEPHrine (Auto Inject) [Epipen] 0.3 mg IM ONCE PRN 12/30/20 12/30/20 Ipratropium-Albuterol Nebulize 3 ml INHALATION RT-QID PRN 12/30/20 12/30/20 [Duoneb 0.5 mg-3 mg/3 ml Soln] prednisoLONE ACETATE 1% OPHTH 1 drop LEFT EYE TID 12/30/20 12/30/20 [Pred Forte 1%] Allergies Allergy/AdvReac Type Severity Reaction Status Date / Time Penicillins Allergy Anaphylaxis Verified 01/27/21 21:15 Review of Systems ROS Statement: Those systems with pertinent positive or pertinent negative responses have been documented in the HPI. ROS Other: All systems not noted in ROS Statement are negative. Past Medical History Past Medical History: Asthma, Diabetes Mellitus, Hypertension Additional Past Medical History / Comment(s): colon CA, gallstones removed, History of Any Multi-Drug Resistant Organisms: None Reported Past Surgical History: Orthopedic Surgery Additional Past Surgical History / Comment(s): hip, back, shoulder surgeries hernia repair, eye implants Past Anesthesia/Blood Transfusion Reactions: No Reported Reaction Past Psychological History: No Psychological Hx Reported Smoking Status: Current every day smoker Past Alcohol Use History: None Reported Past Drug Use History: None Reported General Exam Limitations: no limitations General appearance: alert, in no apparent distress Head exam: Present: atraumatic, normocephalic, normal inspection Eye exam: Present: normal appearance Pupils: Present: normal accommodation ENT exam: Present: normal exam, normal oropharynx, mucous membranes moist, TM's normal bilaterally, normal external ear exam Neck exam: Present: full ROM. Absent: normal inspection (A cluster of Small vesicular lesions noted on the left side of the neck), tenderness, meningismus, lymphadenopathy, thyromegaly, other (No swelling in the left side of the neck.) Respiratory exam: Present: normal lung sounds bilaterally. Absent: respiratory distress, wheezes, rales, rhonchi, stridor, chest wall tenderness, accessory muscle use Cardiovascular Exam: Present: regular rate, normal rhythm, normal heart sounds. Absent: systolic murmur Extremities exam: Present: normal inspection, full ROM, normal capillary refill. Absent: tenderness Back exam: Present: normal inspection, full ROM Neurological exam: Present: alert, oriented X3 Psychiatric exam: Present: normal affect, normal mood Skin exam: Present: warm, dry, intact, normal color Course Vital Signs 01/27/21 01/27/21 21:11 23:06 Temperature 98 F 97.9 F Pulse Rate 65 67 Respiratory 18 18 Rate Blood Pressure 138/70 143/66 O2 Sat by Pulse 96 96 Oximetry Medical Decision Making - Medical Decision Making 89-year-old male presenting to the emergency department with a chief complaint of a possible abscess. On physical examination, there is no signs of an a bscess. These appear to be small cluster of vesicular lesions are likely suggestive of shingles. Patient does not have shingles vaccine. ENT examination is unremarkable. He has full range of motion in neck. No changes to his voice. Not febrile. Patient has so far only taken one dose of Keflex in the vesicular. There is no significant swelling in the left side of the neck. Advised the daughter to continue taking the medications and to follow up back with her primary care physician. Return parameters were thoroughly discussed with daughter and patient were understanding and agreeable. Case discussed physician. Disposition Clinical Impression: Skin lesion of neck Disposition: HOME SELF-CARE Condition: Stable Instructions (If sedation given, give patient instructions): Shingles (ED), Shingles Vaccine (ED) Additional Instructions: Continue taking the valacyclovir and the cephalexin. Return to emergency department if symptoms worsen. Is patient prescribed a controlled substance at d/c from ED?: No Referrals: Mahin Zaragoza MD [STAFF PHYSICIAN] - 1-2 days Time of Disposition: 22:45
[2021-01-27 23:08] VITALS: BP 143/66; PULSE 67; TEMP 97.9
== END 2021-01-27 23:06 | disposition home or self-care (01) ==
LOC: EC 19:54
DX: L98.9 Disorder of the skin and subcutaneous tissue, unspecified (principal); J45.909 Unspecified asthma, uncomplicated; E11.9 Type 2 diabetes mellitus without complications; I10 Essential (primary) hypertension; F17.200 Nicotine dependence, unspecified, uncomplicated; Z85.038 Personal history of other malignant neoplasm of large intestine; Z79.82 Long term (current) use of aspirin; Z88.0 Allergy status to penicillin
CPT/HCPCS: 99282

== ENCOUNTER 2021-02-15 12:10 | Emergency (ER) | payer MEDICARE ==
[2021-02-15 12:40] VITALS: TEMP 97.6
[2021-02-15] MEDS ORDERED: ONDANSETRON 4 MG/2 ML VIAL IVP STA (13:24)
[2021-02-15] MEDS ORDERED: MORPHINE SULFATE 4 MG/ML SYRINGE IVP STA (13:24)
[2021-02-15] MEDS ORDERED: SODIUM CHLORIDE 0.9% 500 ML 500 ML IV STA (13:25)
[2021-02-15 14:01] LABS: Anisocytosis Slight; Basophils % (A) 1 %; Eosinophils # (A) 0.1 k/uL (0-0.7); Eosinophils % (A) 2 %; HCT 34.4 % (39.0-53.0); HGB 11.6 gm/dL (13.0-17.5); Lymphocytes # (A) 1.4 k/uL (1.0-4.8); Lymphocytes % (A) 28 %; MCH 29.4 pg (25.0-35.0); MCHC 33.9 g/dL (31.0-37.0); MCV 86.8 fL (80.0-100.0); Mean Platelet Volume 10.6; Monocytes # (A) 0.9 k/uL (0-1.0); Monocytes % (A) 18 %; Neutrophils # (A) 2.3 k/uL (1.3-7.7); Neutrophils % (A) 47 %; RBC 3.96 m/uL (4.30-5.90); RDW 16.3 % (11.5-15.5); WBC 4.9 k/uL (3.8-10.6)
[2021-02-15 14:02] LABS: Erythrocyte Sedimentation Rate QNS mm/hr (0-15); Platelet Count 94 k/uL (150-450)
[2021-02-15 14:07] LABS: Ovalocytes Present
[2021-02-15 14:19] LABS: Calcium 9.4 mg/dL (8.4-10.2); Total Bilirubin 0.8 mg/dL (0.2-1.3)
[2021-02-15 14:21] LABS: Albumin 4.5 g/dL (3.5-5.0); Potassium 5.1 mmol/L (3.5-5.1); Total Protein 9.1 g/dL (6.3-8.2)
--- NOTE | 2021-02-15 15:34 | CT ---
EXAMINATION TYPE: CT brain wo con DATE OF EXAM: 02/15/2021 HISTORY: Pain in top of head, down left neck CT DLP: 1055.8 mGycm. Automated Exposure Control for Dose Reduction was Utilized. TECHNIQUE: CT scan of the head is performed without contrast. COMPARISON: CT brain December 30, 2020. FINDINGS: There is no acute intracranial hemorrhage or midline shift identified. There is moderate to borderline severe diffuse ventricular and sulcal prominence consistent with diffuse cerebral atrop hy greatest over bilateral frontal and temporal lobes redemonstrated. There is mild to moderate low- attenuation in the periventricular white matter consistent with chronic small vessel ischemic change redemonstrated. Scleral calcification left globe redemonstrated. Visualized paranasal sinuses are selene ar. Bilateral basal ganglia calcifications redemonstrated. IMPRESSION: No acute intracranial hemorrhage or midline shift. There is moderate diffuse cerebral a trophy and mild to moderate chronic small vessel ischemic change redemonstrated. No significant [place] ge from prior study.
--- NOTE | 2021-02-15 15:58 | CT ---
EXAMINATION TYPE: CT angio head neck DATE OF EXAM: 02/15/2021 HISTORY: Pain top of head, left neck pain COMPARISON: None. CT DLP: 482.7 mGycm. Automated Exposure Control for Dose Reduction was Utilized. TECHNIQUE: CTA scan of the head and neck are performed with IV Contrast, patient injected with 65 mL of Isovue 370, axial images are obtained, coronal and sagittal reformatted images are reviewed. 3D r econstructed images are created on an independent workstation and reviewed. FINDINGS: Carotid/Vascular Structures: Mild peripheral plaque in the aortic arch extending into left subclavian artery. Normal three-vessel origin from aortic arch. No significant stenosis. Normal origin of right common carotid artery from right brachiocephalic artery. Tortuous course to the common carotid arteries bilaterally without significant plaque or stenosis. Mi ld peripheral mixed plaque bilateral carotid bulb level extending into proximal internal carotid [place] without significant stenosis. Patent external carotid arteries bilaterally without significant p laque or stenosis. Codominant vertebral arteries patent to basilar junction. Patent bilateral posterior communicating ar teries . No significant focal stenosis or aneurysmal change in the posterior circulation. Anterior ci rculation shows patent anterior communicating artery without significant stenosis or aneurysm. Other: Artifact from bilateral shoulder surgeries somewhat limits evaluation of the lower neck and up per thorax. Fairly severe spurring throughout the entire visualized spine. Multilevel moderate disc s pace narrowing is present. IMPRESSION: No significant stenosis in common or internal carotid arteries bilaterally. NASCET criteria was used in interpretation of this exam?
--- NOTE | 2021-02-15 16:50 | ED ---
General Adult HPI - General Chief complaint: Skin/Abscess/Foreign Body Stated complaint: lt sided head pain Time Seen by Provider: 02/15/21 13:03 Source: patient, RN notes reviewed Mode of arrival: ambulatory Limitations: no limitations - History of Present Illness Initial comments: 89-year-old male presents to the emergency department for chief complaint of left-sided neck and facial pain. This is been ongoing for about one month. However today about an hour prior to arrival his pain worsened. States it is in his face and neck. States it hurts to press on these areas. Patient did have a basal cell carcinoma biopsy a week ago or so as his doctor thought maybe this was causing the pain. Patient denies any numbness of the face. States somet imes the pain is in his head as well. Denies visual changes.Patient has no other complaints at this time including shortness of breath, chest pain, abdominal pain, nausea or vomiting, headache, or visual changes. - Related Data Home Medications Medication Instructions Recorded Confirmed Aspirin EC [Ecotrin Low Dose] 81 mg PO DAILY 07/06/20 02/15/21 Enalapril Maleate 2.5 mg PO DAILY 07/06/20 02/15/21 Furosemide [Lasix] 20 mg PO DAILY 07/06/20 02/15/21 Omeprazole 20 mg PO DAILY 07/06/20 02/15/21 glipiZIDE XL [Glucotrol XL] 10 mg PO BID 07/06/20 02/15/21 Atorvastatin [Lipitor] 10 mg PO DAILY 12/30/20 02/15/21 EPINEPHrine (Auto Inject) [Epipen] 0.3 mg IM ONCE PRN 12/30/20 02/15/21 Previous Rx's Medication Instructions Recorded HYDROcodone/APAP 5-325MG [[place] 1 tab PO Q6HR PRN #10 tab 02/15/21 5-325] predniSONE 50 mg PO DAILY #5 tablet 02/15/21 Allergies Allergy/AdvReac Type Severity Reaction Status Date / Time Penicillins Allergy Anaphylaxis Verified 02/15/21 13:34 Review of Systems ROS Statement: Those systems with pertinent positive or pertinent negative responses have been documented in the HPI. ROS Other: All systems not noted in ROS Statement are negative. Past Medical History Past Medical History: Asthma, Diabetes Mellitus, Hypertension Additional Past Medical History / Comment(s): colon CA, gallstones removed, History of Any Multi-Drug Resistant Organisms: None Reported Past Surgical History: Orthopedic Surgery Additional Past Surgical History / Comment(s): hip, back, shoulder surgeries hernia repair, eye implants Past Anesthesia/Blood Transfusion Reactions: No Reported Reaction Past Psychological History: No Psychological Hx Reported Smoking Status: Current every day smoker Past Alcohol Use History: None Reported Past Drug Use History: None Reported General Exam Limitations: no limitations General appearance: alert, in no apparent distress Head exam: Present: atraumatic Eye exam: Present: normal appearance, PERRL, EOMI. Absent: scleral icterus, conjunctival injection ENT exam: Present: normal exam, normal oropharynx, mucous membranes moist, TM's normal bilaterally, normal external ear exam, other (Patient has pain on the left side of the face and left neck with light palpation) Neck exam: Present: normal inspection, tenderness (Left sided neck tenderness without obvious edema or erythema), full ROM Respiratory exam: Present: normal lung sounds bilaterally. Absent: respiratory distress, wheezes Cardiovascular Exam: Present: regular rate, normal rhythm, normal heart sounds GI/Abdominal exam: Present: soft. Absent: distended, tenderness Course Vital Signs 02/15/21 02/15/21 12:36 15:38 Temperature 97.6 F Pulse Rate 69 59 L Respiratory 18 18 Rate Blood Pressure 150/81 139/72 O2 Sat by Pulse 97 97 Oximetry Medical Decision Making - Medical Decision Making Vitals are stable. HPI and physical exam as documented. CBC unremarkable. Thrombocytopenia chronic. CMP unremarkable. ESR slightly elevated at 45 however not significantly elevated to suggest temporal arteritis. CRP is only 1. CT brain shows no acute cranial hemorrhage or mass effect. A computed tomography scan change. CT angiography shows no significant stenosis and common or internal carotid arteries bilaterally. Patient was given pain medication and did have significant improvement. At this time he can be discharged home. He will return here for any worsening symptoms. - Lab Data Result diagrams: 02/15/21 13:45 02/15/21 13:45 Lab Results 02/15/21 02/15/21 02/15/21 Range/Units 13:45 13:45 14:30 WBC 4.9 (3.8-10.6) k/uL RBC 3.96 L (4.30-5.90) m/uL Hgb 11.6 L (13.0-17.5) gm/dL Hct 34.4 L (39.0-53.0) % MCV 86.8 (80.0-100.0) fL MCH 29.4 (25.0-35.0) pg MCHC 33.9 (31.0-37.0) g/dL RDW 16.3 H (11.5-15.5) % Plt Count 94 L (150-450) k/uL MPV 10.6 Neutrophils % 47 % Lymphocytes % 28 % Monocytes % 18 % Eosinophils % 2 % Basophils % 1 % Neutrophils # 2.3 (1.3-7.7) k/uL Lymphocytes # 1.4 (1.0-4.8) k/uL Monocytes # 0.9 (0-1.0) k/uL Eosinophils # 0.1 (0-0.7) k/uL Basophils # 0.0 (0-0.2) k/uL Manual Slide Review Performed Anisocytosis Slight Ovalocytes Present ESR QNS 45 H Sodium 135 L (137-145) mmol/L Potassium 5.1 (3.5-5.1) mmol/L Chloride 107 (98-107) mmol/L Carbon Dioxide 20 L (22-30) mmol/L Anion Gap 8 mmol/L BUN 16 (9-20) mg/dL Creatinine 0.95 (0.66-1.25) mg/dL Est GFR (CKD-EPI)AfAm 82 (>60 ml/min/1.73 sqM) Est GFR (CKD-EPI)NonAf 71 (>60 ml/min/1.73 sqM) Glucose 149 H (74-99) mg/dL Calcium 9.4 (8.4-10.2) mg/dL Total Bilirubin 0.8 (0.2-1.3) mg/dL AST 58 (17-59) U/L ALT 24 (4-49) U/L Alkaline Phosphatase 124 (38-126) U/L C-Reactive Protein 1.0 H (<1.0) mg/dL Total Protein 9.1 H (6.3-8.2) g/dL Albumin 4.5 (3.5-5.0) g/dL Disposition Clinical Impression: Facial pain, Neck pain Disposition: HOME SELF-CARE Condition: Good Instructions (If sedation given, give patient instructions): Neck Pain (ED) Additional Instructions: Please take medications as directed. Please follow-up with primary care and rheumatology. Return to the emergency room for any worsening symptoms. Prescriptions: HYDROcodone/APAP 5-325MG [[place] 5-325] 1 tab PO Q6HR PRN #10 tab PRN Reason: Pain predniSONE 50 mg PO DAILY #5 tablet Is patient prescribed a controlled substance at d/c from ED?: Yes When asked, does pt state using other controlled substances?: No If prescribed controlled substance>3 days was MAPS reviewed?: Prescribed <3 Days If opioid is for acute pain is fill amount 7 days or less?: Yes If Rx opioid, was Start Talking consent form obtained?: Yes Referrals: Joey Zaragoza MD [Primary Care Provider] - 1-2 days Zahraa Silva MD [STAFF PHYSICIAN] - 1-2 days Time of Disposition: 16:49
[2021-02-15 17:12] VITALS: BP 147/77; PULSE 72; RESP 16
== END 2021-02-15 17:12 | disposition home or self-care (01) ==
LOC: EC 12:10
DX: R51.9 Headache, unspecified (principal); M54.2 Cervicalgia; F17.200 Nicotine dependence, unspecified, uncomplicated; E11.9 Type 2 diabetes mellitus without complications; J45.909 Unspecified asthma, uncomplicated; I10 Essential (primary) hypertension; Z88.0 Allergy status to penicillin; Z79.84 Long term (current) use of oral hypoglycemic drugs; Z79.899 Other long term (current) drug therapy
CPT/HCPCS: 99284; 96374; 96375; 36415; 80053; 85652; 85025; 86140; 70496; 70450; 70498; J2270; J2405; Q9967

== ENCOUNTER 2021-02-17 17:09 | Emergency (ER) | payer MEDICARE ==
[2021-02-17 17:23] VITALS: TEMP 97.8
[2021-02-17] MEDS ORDERED: MORPHINE SULFATE 4 MG/ML SYRINGE IVP STA (17:36)
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
[2021-02-17 18:06] LABS: Anisocytosis Slight; Basophils # (A) 0.1 k/uL (0-0.2); Basophils % (A) 1 %; Eosinophils % (A) 0 %; HCT 35.4 % (39.0-53.0); HGB 11.2 gm/dL (13.0-17.5); Lymphocytes # (A) 2.3 k/uL (1.0-4.8); Lymphocytes % (A) 23 %; MCH 28.4 pg (25.0-35.0); MCHC 31.6 g/dL (31.0-37.0); MCV 89.8 fL (80.0-100.0); Mean Platelet Volume 9.6; Monocytes # (A) 1.2 k/uL (0-1.0); Monocytes % (A) 12 %; Neutrophils % (A) 62 %; Platelet Count 102 k/uL (150-450); RBC 3.94 m/uL (4.30-5.90); RDW 16.2 % (11.5-15.5); WBC 9.7 k/uL (3.8-10.6)
[2021-02-17 18:14] LABS: Albumin 4.4 g/dL (3.5-5.0); Calcium 9.4 mg/dL (8.4-10.2); Total Bilirubin 0.5 mg/dL (0.2-1.3); Total Protein 8.9 g/dL (6.3-8.2)
[2021-02-17 18:35] LABS: Prothrombin Time 10.4 sec (9.0-12.0)
[2021-02-17 18:37] LABS: Partial Thromboplastin Time 19.9 sec (22.0-30.0)
--- NOTE | 2021-02-17 18:41 | CT ---
EXAMINATION TYPE: CT chest wo con DATE OF EXAM: 02/17/2021 COMPARISON: CT chest 08/28/2020 HISTORY: fall, rib pain CT DLP: 449.2 mGycm. Automated Exposure Control for Dose Reduction was Utilized. TECHNIQUE: CT scan of the thorax is performed without IV contrast. FINDINGS: LUNGS: There are three soft tissue nodules in the lungs that are new from the prior study. The larges t of these is in the left posterior sulcus is measures approximately 1.5 cm. No consolidation, effusion or pneumothorax. The central airways are patent. Next MEDIASTINUM: Lack of IV contrast is noted to limit evaluation for mediastinal and especially hilar ad enopathy. There are no definitive greater than 1 cm hilar or mediastinal lymph nodes. No cardiomega ly or pericardial effusion is seen. OTHER: Streak artifact from bilateral shoulder arthroplasties limits assessment of the upper ribs-ethan gs. No rib fracture. There are subcentimeter hypodensities in the liver are indeterminate. There is a cyst in the left lobe of the liver. Subtle geographic low density in the left lobe of the liver roberta ures approximately 3.3 cm. Splenule. Cholecystectomy. Degenerative changes of the spine. IMPRESSION: Several soft tissue nodules in the lungs measuring up to 1.5 cm are new from the prior st udy. No consolidation or effusion or pneumothorax. Recommend follow-up with contrast-enhanced study. A geographic area of hypodensity in the left lobe of the liver measuring up to 3.3 cm is incompletely characterized. Several subcentimeter hypodensities of the liver are indeterminate. Recommend liver p rotocol MRI or CT on a nonemergent basis.
--- NOTE | 2021-02-17 19:15 | CT ---
EXAMINATION TYPE: CT brain and spine wo con DATE OF EXAM: 02/17/2021 COMPARISON: CT brain 02/15/2021 HISTORY: fall, head lac, LOC CT DLP: 1399.6 mGycm Automated exposure control for dose reduction was used. TECHNIQUE: CT scan of the head and cervical spine are performed without contrast. FINDINGS: There is no acute intracranial hemorrhage, mass effect, or midline shift identified. The ventricles and sulci are within normal limits in size. The globes are intact and the visualized sin uses are clear. Cerebral volume retraction. Prominence of the ventricle and sulci which are concordan t. Cervical spine is visualized in its entirety from C1 through upper thoracic levels and demonstrates s atisfactory alignment without evidence of acute fracture or dislocation. Prevertebral soft tissue ap pears within normal limits. The C1-C2 articulation is unremarkable. Predental space is not widened. Advanced degenerative changes of the cervical spine. IMPRESSION: 1. There is no acute fracture or dislocation evident in the cervical spine. 2. No acute intracranial hemorrhage, mass effect, or midline shift is seen.
[2021-02-17 19:54] VITALS: BP 160/78; PULSE 66; RESP 18
== END 2021-02-17 20:07 | disposition home or self-care (01) ==
LOC: EC 17:09
DX: S06.0X9A Concussion with loss of consciousness of unspecified duration, initial encounter (principal); E11.9 Type 2 diabetes mellitus without complications; I10 Essential (primary) hypertension; J45.909 Unspecified asthma, uncomplicated; F17.200 Nicotine dependence, unspecified, uncomplicated; Z79.82 Long term (current) use of aspirin; Z79.84 Long term (current) use of oral hypoglycemic drugs; Z79.52 Long term (current) use of systemic steroids; Z79.899 Other long term (current) drug therapy; W05.0XXA Fall from non-moving wheelchair, initial encounter
CPT/HCPCS: 36415; 80053; 85025; 85610; 85730; 72125; 70450; 71250; 96374; 99284; J2270; 93005

== ENCOUNTER 2021-03-04 11:35 | Observation (INO) | payer MEDICARE ==
--- NOTE | 2021-03-04 12:34 | ED ---
General Adult HPI - General Chief complaint: Neuro Symptoms/Deficit Stated complaint: bluriness L eye/left side face numbness Time Seen by Provider: 03/04/21 12:09 Source: patient, RN notes reviewed, old records reviewed Mode of arrival: ambulatory Limitations: no limitations - History of Present Illness Initial comments: Patient is an 89-year-old male with past medical history remarkable for skin cancer, asthma, diabetes, hypertension who presents emergency Department complaining of strokelike symptoms. Patient's last known well was sometime yesterday afternoon, likely before 1 PM. 2 days ago, he had multiple doctors appointments, and may "froze" a skin lesion on the left side of his face. He was feeling fatigued which they attributed to the busy day previously. He lives at home with family. During the afternoon yesterday, patient was less active, and the patient's daughter noticed that when she returned home from work yesterday he was having left-sided weakness, left-sided numbness. He was having left-sided facial numbness after the presentation in 2 days ago, however this did not involve the extremities. They called the doctor who instructed them to bring him to the emergency department, however they waited until today to see if he felt better because they to be admitted to multiple doctors appointments that before. Patient currently is alert and interactive. He denies any acute complaints other than weakness in the left arm and left leg. His no other acute complaints at this time. Patient presents for stroke like symptoms. Patient denies any trauma and denies any blood thinners. - Related Data Home Medications Medication Instructions Recorded Confirmed Aspirin EC [Ecotrin Low Dose] 81 mg PO DAILY 07/06/20 03/04/21 Enalapril Maleate 2.5 mg PO DAILY 07/06/20 03/04/21 Furosemide [Lasix] 20 mg PO DAILY 07/06/20 03/04/21 Omeprazole 20 mg PO DAILY 07/06/20 03/04/21 glipiZIDE XL [Glucotrol XL] 10 mg PO BID 07/06/20 03/04/21 Atorvastatin [Lipitor] 10 mg PO HS 12/30/20 03/04/21 EPINEPHrine (Auto Inject) [Epipen] 0.3 mg IM ONCE PRN 12/30/20 03/04/21 Albuterol Inhaler [Ventolin Hfa 2 puff INHALATION RT-QID PRN 03/04/21 03/04/21 Inhaler] Ferrous Sulfate [Feosol] 325 mg PO DAILY 03/04/21 03/04/21 Allergies Allergy/AdvReac Type Severity Reaction Status Date / Time Penicillins Allergy Anaphylaxis Verified 03/04/21 12:58 Review of Systems ROS Statement: Those systems with pertinent positive or pertinent negative responses have been documented in the HPI. Review of Systems: CONST: Denies fever EYES: Denies blurry vision ENT: Denies nasal congestion C/V: Denies Chest pain RESP: Denies shortness of breath GI: Denies abdominal pain : Denies dysuria SKIN: Denies rash. MSK: Endorses left sided weakness and sensory deficits. NEURO: Denies headache ROS Other: All systems not noted in ROS Statement are negative. Past Medical History Past Medical History: Asthma, Diabetes Mellitus, Hypertension Additional Past Medical History / Comment(s): colon CA, gallstones removed, History of Any Multi-Drug Resistant Organisms: None Reported Past Surgical History: Orthopedic Surgery Additional Past Surgical History / Comment(s): hip, back, shoulder surgeries hernia repair, eye implants Past Anesthesia/Blood Transfusion Reactions: No Reported Reaction Past Psychological History: No Psychological Hx Reported Smoking Status: Current every day smoker Past Alcohol Use History: None Reported Past Drug Use History: None Reported General Exam - General Exam Comments Initial Comments: General: Appears in no acute distress. HEAD: Normal with no signs of head trauma. EYES: PERRLA, EOMI, conjunctiva normal, no discharge. Pupils are 3 mm and equal bilaterally. ENT: Normal oropharynx. Patient has dentures. RESPIRATORY: Clear breath sounds bilaterally. No wheezes, rales, or rhonchi. C/V: Regular rate and rhythm. S1 and S2 auscultated, no edema, peripheral pulses 2+ and intact throughout ABD: Abd is soft, nontender, nondistended EXT: Decreased range of motion on the left upper and left lower extremities. No obvious deformities. SKIN: Patient has a iliana on his left cheek which was suspicious for possible cancerous lesion. NEURO: Alert and oriented 4. Cranial nerves II through XII do appear to be intact. NIH stroke scale is approximately 6, 2 points each for left upper and left lower extremity weakness, 1 point left-sided facial droop, and 1 point for sensory deficits to light touch on the left side. 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 This is unchanged. Limitations: no limitations Course Vital Signs 03/04/21 03/04/21 03/04/21 11:43 12:01 12:30 Temperature 98.3 F Pulse Rate 87 82 71 Respiratory 20 18 18 Rate Blood Pressure 118/62 134/71 119/60 O2 Sat by Pulse 97 98 97 Oximetry 03/04/21 03/04/21 03/04/21 14:03 15:03 16:00 Temperature Pulse Rate 66 69 69 Respiratory 16 18 18 Rate Blood Pressure 128/81 124/74 123/83 O2 Sat by Pulse 99 98 98 Oximetry 03/04/21 03/04/21 03/04/21 17:00 18:00 19:04 Temperature 98.3 F Pulse Rate 69 76 76 Respiratory 18 18 18 Rate Blood Pressure 124/67 127/83 127/83 O2 Sat by Pulse 98 98 98 Oximetry Medical Decision Making - Medical Decision Making The patient's presentation and physical exam, is been having strokelike symptoms for the last approximately 23-[address] last known well at 1 PM yesterday. Patient is not a TPA candidate due to times and symptoms onset great er than 4 hours. However we will activate stroke pager, obtain stroke workup labs as well as imaging of the head. He and family members were in agreement this plan. I spoke with the on-call neuro team foreman, Dr. Joyce, who was in agreement this plan. He was in agreement the patient is not a TPA candidate. Patient's CT brain revealed a trace subdural hematoma along the left frontal convexity which is likely subacute, and this does not With the current neurological deficits which are left-sided. There is also mild hydrocephalus likely secondary to central cerebral atrophy. Patient's CTA revealed no significant stenosis or occlusion. Patient's chest x-ray shows no acute cardiopulmonary process, but present of the chronic pulmonary nodule. EKG showed normal sinus rhythm without any concern for acute ischemia. Laboratory studies were remarkable for a normocytic anemia with a hemoglobin of 12.4. Platelets were unremarkable. Patient is mildly elevated LFTs. Troponin is negative. Urinalysis is positive for 4+ glucose but no signs of acute infection. Covid is negative. I spoke with Dr. Joyce regarding the patient's imaging, and he recommended that the patient remain at our facility, that we obtain an MRI and EEG, that I consult neurology. I was in agreement this plan. MRI and stat EEG were ordered by myself. Anticoagulation will be held at this time. I spoke with on-call neurology, Dr. Zuleta who was in agreement this plan. Stat EKG was ordered and emergency department staff called the tech to inform them, and they were directly notified prior to 3pm. They expressed understanding and agreement. Patient will be admitted to the hospital and serous condition to telemetry bed. I spoke with the admitting physician and with Dr. Wilson who accepted the catherine ent.Blood pressures remained under 160 mmHg systolic, which is goal. - Lab Data Result diagrams: 03/04/21 12:24 03/04/21 12:24 Lab Results 03/04/21 03/04/21 03/04/21 Range/Units 12:24 12:24 12:24 WBC 8.1 (3.8-10.6) k/uL RBC 4.20 L (4.30-5.90) m/uL Hgb 12.4 L (13.0-17.5) gm/dL Hct 37.8 L (39.0-53.0) % MCV 89.9 (80.0-100.0) fL MCH 29.5 (25.0-35.0) pg MCHC 32.8 (31.0-37.0) g/dL RDW 17.6 H (11.5-15.5) % Plt Count 80 L (150-450) k/uL MPV 10.8 Neutrophils % 62 % Lymphocytes % 15 % Monocytes % 20 % Eosinophils % 1 % Basophils % 0 % Neutrophils # 5.0 (1.3-7.7) k/uL Lymphocytes # 1.2 (1.0-4.8) k/uL Monocytes # 1.6 H (0-1.0) k/uL Eosinophils # 0.0 (0-0.7) k/uL Basophils # 0.0 (0-0.2) k/uL Anisocytosis Slight PT 10.3 (9.0-12.0) sec INR 1.0 (<1.2) APTT 22.1 (22.0-30.0) sec Sodium 136 L (137-145) mmol/L Potassium 4.5 (3.5-5.1) mmol/L Chloride 106 (98-107) mmol/L Carbon Dioxide 21 L (22-30) mmol/L Anion Gap 9 mmol/L BUN 26 H (9-20) mg/dL Creatinine 1.06 (0.66-1.25) mg/dL Est GFR (CKD-EPI)AfAm 72 (>60 ml/min/1.73 sqM) Est GFR (CKD-EPI)NonAf 62 (>60 ml/min/1.73 sqM) Glucose 271 H (74-99) mg/dL Calcium 9.5 (8.4-10.2) mg/dL Total Bilirubin 1.1 (0.2-1.3) mg/dL AST 69 H (17-59) U/L ALT 60 H (4-49) U/L Alkaline Phosphatase 147 H (38-126) U/L Troponin I (0.000-0.034) ng/mL Total Protein 8.3 H (6.3-8.2) g/dL Albumin 4.2 (3.5-5.0) g/dL Coronavirus (PCR) (Not Detectd) 03/04/21 03/04/21 Range/Units 12:24 12:52 WBC (3.8-10.6) k/uL RBC (4.30-5.90) m/uL Hgb (13.0-17.5) gm/dL Hct (39.0-53.0) % MCV (80.0-100.0) fL MCH (25.0-35.0) pg MCHC (31.0-37.0) g/dL RDW (11.5-15.5) % Plt Count (150-450) k/uL MPV Neutrophils % % Lymphocytes % % Monocytes % % Eosinophils % % Basophils % % Neutrophils # (1.3-7.7) k/uL Lymphocytes # (1.0-4.8) k/uL Monocytes # (0-1.0) k/uL Eosinophils # (0-0.7) k/uL Basophils # (0-0.2) k/uL Anisocytosis PT (9.0-12.0) sec INR (<1.2) APTT (22.0-30.0) sec Sodium (137-145) mmol/L Potassium (3.5-5.1) mmol/L Chloride (98-107) mmol/L Carbon Dioxide (22-30) mmol/L Anion Gap mmol/L BUN (9-20) mg/dL Creatinine (0.66-1.25) mg/dL Est GFR (CKD-EPI)AfAm (>60 ml/min/1.73 sqM) Est GFR (CKD-EPI)NonAf (>60 ml/min/1.73 sqM) Glucose (74-99) mg/dL Calcium (8.4-10.2) mg/dL Total Bilirubin (0.2-1.3) mg/dL AST (17-59) U/L ALT (4-49) U/L Alkaline Phosphatase (38-126) U/L Troponin I <0.012 (0.000-0.034) ng/mL Total Protein (6.3-8.2) g/dL Albumin (3.5-5.0) g/dL Coronavirus (PCR) Not Detected (Not Detectd) - EKG Data -: EKG Interpreted by Me EKG Comments: 12-lead Electrocardiogram Interpretation Note EKG was reviewed and interpreted by myself. 12-lead ECG performed at 1202 is interpreted by me as revealing normal sinus rhythm at a rate of 88 beats per minute. [place] is normal. AR interval is 152 ms, QRS duration is 76 ms, QTc is 442 ms.. There were no ST or T wave abnormalities to suggest myocardial ischemia or injury. R wave progression across the precordium was satisfactory. By my interpretation this EKG is non-diagnostic for acute ischemia. Critical Care Time Critical Care Time: Yes Total Critical Care Time: 35 Critical Care Time: Upon my evaluation, this patient had a high probability of imminent or life- threatening deterioration due to CVA, which required my direct attention, intervention, and personal management. I have personally provided 35 minutes of critical care time exclusive of time spent on separately billable procedures. Time includes review of laboratory data, radiology results, discussion with consultants, and monitoring for potential decompensation. Interventions were performed as documented in my note. Disposition Clinical Impression: Cerebrovascular accident (CVA), Subacute subdural hematoma, Anemia Disposition: ADMITTED IP TO THIS HOSP Condition: Serious
--- NOTE | 2021-03-04 12:54 | CT ---
EXAMINATION TYPE: CT brain wo con for TPA DATE OF EXAM: 03/04/2021 COMPARISON: 02/17/2021 HISTORY: 89-year-old male Neuro deficit, acute, stroke suspected TECHNIQUE: Examination was done in axial plane without intravenous contrast. Coronal and sagittal r econstructions performed. CT DLP: 1060 mGycm Automated exposure control for dose reduction was used. FINDINGS: Redemonstrated mild to moderate hydrocephalus. Saldaña ratio 0.37, relatively unchanged from prior. There is a trace subdural hematoma along the left frontal convexity measuring 4 mm thick. This is iso dense. However, some minimal linear hyperdensity is noted anteriorly, axial image 39. Findings are ne w compared to 02/17/2021. Mild periventricular white matter hypodensities. Benign basal ganglionic calcifications. Prostatic ca lcifications carotid siphons. No evidence for acute ischemic change, mass, mass effect, midline shift. No effacement of cerebral stern lci or basal subarachnoid cisterns. Gibbons-white matter differentiation is maintained. Leftward nasal septal deviation. Suspect left-sided nasal bone fractures. Mastoid air cells are well pneumatized. Orbits and globes are intact. IMPRESSION: 1. Trace 4 mm thick subdural hematoma along the left frontal convexity. This is primarily isodense stern ggesting a more subacute bleed. However, minimal intermixed acute blood is also noted, axial image 39 . 2. No mass effect or midline shift. 3. 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 Correlate to exclude a component of NPH. Findings called to Dr. Matt in the ER at 12:50 PM.
--- NOTE | 2021-03-04 13:01 | CT ---
EXAMINATION TYPE: CT angio head neck DATE OF EXAM: 03/04/2021 COMPARISON: 02/15/2021 HISTORY: 89-year-old male neurologic deficit, acute, stroke suspected TECHNIQUE: Contiguous axial scanning of the head and neck performed with IV Contrast, patient injecte d with 65 mL of Isovue 370. Coronal/sagittal MIP reconstructions performed. 3-D reconstructions gener ated on a dedicated independent workstation. CT DLP: To be reported Automated exposure control for dose reduction was used. FINDINGS: NECK: Conventional arch vessel branching anatomy. The vertebral arteries are codominant and appear patent throughout the course. Right common carotid artery is patent. Mild atherosclerotic calcifications and plaque at the right ca rotid bifurcation. Right ICA is patent. No significant narrowing. NASCET criteria was utilized. The left common carotid artery is patent. Minimal atherosclerotic calcification left carotid bulb. Le ft ICA otherwise patent without any significant narrowing. HEAD: The vertebral and basilar arteries are patent as is the posterior circulation. The internal carotid arteries are patent. Bilateral posterior communicating arteries are visualized. The anterior circulation is patent. No aneurysmal change is identified. Dual venous sinuses appear patent. IMPRESSION: 1. NECK: MILD ATHEROSCLEROTIC CHANGE AT THE BILATERAL CAROTID BIFURCATIONS. NO HEMODYNAMICALLY SIGNIF ICANT VERTEBRAL OR CAROTID ARTERY STENOSIS. 2. HEAD: NO LARGE VESSEL INTRACRANIAL ARTERIAL OCCLUSION, SIGNIFICANT STENOSIS, OR ANEURYSMAL CHANGE IS IDENTIFIED.
[2021-03-04 13:04] LABS: Prothrombin Time 10.3 sec (9.0-12.0)
[2021-03-04 13:06] LABS: Albumin 4.2 g/dL (3.5-5.0); Calcium 9.5 mg/dL (8.4-10.2); Total Bilirubin 1.1 mg/dL (0.2-1.3); Total Protein 8.3 g/dL (6.3-8.2)
[2021-03-04 13:08] LABS: Anisocytosis Slight; Basophils % (A) 0 %; Eosinophils % (A) 1 %; HCT 37.8 % (39.0-53.0); HGB 12.4 gm/dL (13.0-17.5); Lymphocytes # (A) 1.2 k/uL (1.0-4.8); Lymphocytes % (A) 15 %; MCH 29.5 pg (25.0-35.0); MCHC 32.8 g/dL (31.0-37.0); MCV 89.9 fL (80.0-100.0); Mean Platelet Volume 10.8; Monocytes # (A) 1.6 k/uL (0-1.0); Monocytes % (A) 20 %; Neutrophils % (A) 62 %; Potassium 4.5 mmol/L (3.5-5.1); RDW 17.6 % (11.5-15.5); WBC 8.1 k/uL (3.8-10.6)
[2021-03-04 13:12] LABS: Platelet Count 80 k/uL (150-450)
[2021-03-04 13:19] LABS: Partial Thromboplastin Time 22.1 sec (22.0-30.0)
--- NOTE | 2021-03-04 13:36 | XR ---
EXAMINATION TYPE: XR chest 2V DATE OF EXAM: 03/04/2021 COMPARISON: NONE TECHNIQUE: PA and lateral views submitted. HISTORY: Altered mental status FINDINGS: The lungs are clear and there is no pneumothorax, pleural effusion, or focal pneumonia. Postsurgica l changes bilateral shoulder. Suspicion for a nodule in the left upper lobe measuring 1 cm. Subsegmen fide linear changes both lung bases. Atelectasis is favored. Hypertrophic change of the spine. Arthrop athy of the shoulders. IMPRESSION: 1. Suspicion for a left perihilar pulmonary nodule measuring approximately [address] scan dated report multiple pulmonary nodules. 2. Basilar atelectasis favored over infiltrate..
[2021-03-04] MEDS ORDERED: ALBUTEROL NEBULIZED 2.5 MG/3 ML INHALATION PRN (14:05)
[2021-03-04 14:51] LABS: Appearance,Urine Clear (Clear); Bilirubin,Urine Negative (Negative); Blood,Urine Negative (Negative); Color,Urine Yellow; Glucose,Urine (UA) 4+ (Negative); Ketones,Urine Negative (Negative); Leukocyte Esterase,Urine Negative (Negative); Nitrite,Urine Negative (Negative); PH, Urine 6.5 (5.0-8.0); Protein,Urine Trace (Negative); Urobilinogen,Urine <2.0 mg/dL (<2.0)
[2021-03-04 14:54] LABS: Specific Gravity,Urine >1.050 (1.001-1.035)
--- NOTE | 2021-03-04 17:23 | P.HPIM ---
History of Present Illness H&P Date: 03/04/21 This is a 89-year-old male with complex past medical history noted below presented to the emergency room with strokelike symptoms. Patient is very hard of hearing is unable to provide any significant history. History was obtained by chart review and ER report as ER staff were able to speak to his daughter. Apparently, patient has been having problems with left-sided weakness involving his left arm and left leg. He is also complaining of right-sided numbness involving his face and arm. Symptoms started yesterday around 1 PM. He presented to the ER and underwent computed tomography scan of the brain and CT angiogram of the head and neck. He was seen by me in the ER. He was able to move all 4 extremities. His speech was normal. No neurological focal deficit. NIH on presentation was 6. 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 Review of Systems Review of system: 14 points review of systems were obtained and were negative except to what were mentioned in the HPI. Past Medical History Past Medical History: Asthma, Diabetes Mellitus, Hypertension Additional Past Medical History / Comment(s): colon CA, gallstones removed, History of Any Multi-Drug Resistant Organisms: None Reported Past Surgical History: Orthopedic Surgery Additional Past Surgical History / Comment(s): hip, back, shoulder surgeries hernia repair, eye implants Past Anesthesia/Blood Transfusion Reactions: No Reported Reaction Past Psychological History: No Psychological Hx Reported Smoking Status: Current every day smoker Past Alcohol Use History: None Reported Past Drug Use History: None Reported Medications and Allergies Home Medications Medication Instructions Recorded Confirmed Type Aspirin EC [Ecotrin Low Dose] 81 mg PO DAILY 07/06/20 03/04/21 History Enalapril Maleate 2.5 mg PO DAILY 07/06/20 03/04/21 History Furosemide [Lasix] 20 mg PO DAILY 07/06/20 03/04/21 History Omeprazole 20 mg PO DAILY 07/06/20 03/04/21 History glipiZIDE XL [Glucotrol XL] 10 mg PO BID 07/06/20 03/04/21 History Atorvastatin [Lipitor] 10 mg PO HS 12/30/20 03/04/21 History EPINEPHrine (Auto Inject) [Epipen] 0.3 mg IM ONCE PRN 12/30/20 03/04/21 History Albuterol Inhaler [Ventolin Hfa 2 puff INHALATION RT-QID PRN 03/04/21 03/04/21 History Inhaler] Ferrous Sulfate [Feosol] 325 mg PO DAILY 03/04/21 03/04/21 History Allergies Allergy/AdvReac Type Severity Reaction Status Date / Time Penicillins Allergy Anaphylaxis Verified 03/04/21 12:58 Physical Exam Vitals: Vital Signs Temp Pulse Resp BP Pulse Ox 03/04/21 15:03 69 18 124/74 98 03/04/21 14:03 66 16 128/81 99 03/04/21 12:30 71 18 119/60 97 03/04/21 12:01 82 18 134/71 98 03/04/21 11:43 98.3 F 87 20 118/62 97 Intake and Output 03/04/21 03/04/21 03/04/21 06:59 14:59 22:59 Other: Weight 82.1 kg General: The patient is awake and alert, in no distress Eye: there is normal conjunctiva bilaterally. Neck: The neck is supple, there is no JVD. Cardiovascular: Normal S1-S2, no S3-S4, no murmurs. Respiratory: Lungs clear to auscultation bilaterally Gastrointestinal: Abdomen is soft, nontender Musculoskeletal: There is no pedal edema. Neurological:. Speech is normal. Skin: Skin is warm and dry Results CBC & Chem 7: 03/04/21 12:24 03/04/21 12:24 Labs: Abnormal Lab Results - Last 24 Hours (Table) 03/04/21 03/04/21 03/04/21 Range/Units 12:24 12:24 14:20 RBC 4.20 L (4.30-5.90) m/uL Hgb 12.4 L (13.0-17.5) gm/dL Hct 37.8 L (39.0-53.0) % RDW 17.6 H (11.5-15.5) % Plt Count 80 L (150-450) k/uL Monocytes # 1.6 H (0-1.0) k/uL Sodium 136 L (137-145) mmol/L Carbon Dioxide 21 L (22-30) mmol/L BUN 26 H (9-20) mg/dL Glucose 271 H (74-99) mg/dL AST 69 H (17-59) U/L ALT 60 H (4-49) U/L Alkaline Phosphatase 147 H (38-126) U/L Total Protein 8.3 H (6.3-8.2) g/dL Ur Specific [place] >1.050 H (1.001-1.035) Urine Protein Trace H (Negative) Urine Glucose (UA) 4+ H (Negative) Assessment and Plan Assessment: 1. Suspected acute CVA/stroke 2. 4 mm subdural hematoma along the left frontal convexity 3. Underlying type 2 diabetes 4. COPD without exacerbation 5. Other medical problems, hypertension, hyperlipidemia, chronic thrombocytopenia, bilateral hearing loss, history of tobacco abuse Today, I reviewed his medication list and lab work results. Computed tomography scan of the head in the ER showed a 4 mm thick subdural hematoma along the left frontal convexity. No other acute findings noted on CT. Hold home dose of aspirin. MRI of the brain ordered. Continue neuro check. Stroke protocol. R epeat lab work in the morning. Echocardiogram. PT/OT/speech pathology evaluation.
[2021-03-04 17:55] LABS: Glucose,Whole Blood 185 mg/dL (75-99)
[2021-03-04] MEDS: INSULIN ASPART (NovoLOG) 100 UNIT/ML VIAL SQ SCH (18:01)
[2021-03-04] MEDS: ATORVASTATIN 10 MG TAB PO SCH (22:15)
[2021-03-05 06:17] LABS: Glucose,Whole Blood 121 mg/dL (75-99)
[2021-03-05] MEDS: PANTOPRAZOLE 40 MG TABLET PO SCH (06:19)
[2021-03-05] MEDS: INSULIN ASPART (NovoLOG) 100 UNIT/ML VIAL SQ SCH ×4 (06:36→21:57)
[2021-03-05] MEDS: FUROSEMIDE 20 MG TAB PO SCH (07:59)
[2021-03-05] MEDS: lisinopriL 5 MG TAB PO SCH (07:59)
--- NOTE | 2021-03-05 08:07 | P.CNNES ---
History of Present Illness Consult date: 03/04/21 Requesting physician: Nickolas Matt Reason for Consult: CVA, subacute subdural hematoma History of Present Illness: Patient is a 89-year-old male came to the hospital today at 11:35 AM. Patient not able to provide any history because of significant hearing loss. Patient's daughter was present, who provided most of the history. She states that patient was brought to the hospital because last night he was complaining of blurred vision in the left eye, and his left side of the face was numb. He reported it to her when she went to see him at 7 PM. She does not know what time the symptoms actually started. She did not notice any focal weakness, facial droop or slurred speech. Patient's daughter states that sometimes because of his aging process, he does say some things to get attention. Patient's daughter also mentions that he did fall 2 weeks ago, when he was seated on a walker and she was pushing his walker when the wheels got in the port hole and patient fell backwards with a walker and patient's daughter herself felt on top of the dad. He was brought to the hospital, had computed tomography scan of the head done which was negative Vital signs on arrival blood pressure 118/62, pulse rate 87, temperature 98.3. Blood test shows normal WBC hemoglobin 12.4, platelets 80. PT/PTT normal, sodi um 136 potassium 4.5, BUN 26, creatinine 1.06, AST is mildly elevated 69 and ALT 60. Troponin negative. UA negative. Walker virus PCR negative. Patient's B12 was 632 on 07/08/2020. TSH normal. Chest x-ray showed suspicion for a left perihilar pulmonary nodule measuring approximately 1 cm. Basilar atelectasis favored over infiltrate. EKG shows normal sinus rhythm. Computed tomography scan of head showed trace 4 mm thick subdural hematoma along the left frontal convexity. This is primarily isodense suggesting a more subacute bleed. However, minimal intermixed acute blood is also noted. No mass effect or midline shift. 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 Correlate to exclude a component of NPH. On my review, there is severe cortical atrophy, consistent with the amount of central dilation. I do not believe there is any evidence of NPH. CTA of head showed no large vessel intracranial arterial occlusion, significant stenosis or aneurysmal change. CTA of the neck showed mild atherosclerotic change at the bilateral carotid bifurcations. No hemodynamically significant vertebral or carotid artery stenosis. Apparently the ED staff discussed case with ROSA Joyce. Patient of course was not a candidate for TPA because of symptoms have been present for more than 4.5 hours, and evidence of possible small subdural hematoma. CT head showed trace subdural hematoma along the left frontal convexity which is likely subacute. He recommended an EEG, MRI of the brain. Aspirin was discontinued because of presence of small subdural hematoma. Patient had a recent MRI of the brain on 12/23/2020, which revealed advanced atrophy and mild hydrocephalus. No acute process. Patient's home medications include glipizide, omeprazole, Lasix, enalapril, aspirin 81 mg, Lipitor 10 mg, ferrous sulfate. Patient has history of diabetes, hypertension. He has smoked cigars have to cigars per day. Never smoked cigarettes, no alcohol use. Patient's daughter has not noticed any signs of seizures. She is noticing starting signs of dementia. Review of Systems Patient denies headache, he is very hard of hearing. Denies any chest pain shortness of breath wheezing or cough. No abdominal pain, no fever or chills. Other review of systems could not be obtained because of hard of hearing. No rash. No weight loss. Past Medical History Past Medical History: Asthma, Diabetes Mellitus, Hypertension Additional Past Medical History / Comment(s): colon CA, gallstones removed, History of Any Multi-Drug Resistant Organisms: None Reported Past Surgical History: Orthopedic Surgery Additional Past Surgical History / Comment(s): hip, back, shoulder surgeries h ernia repair, eye implants Past Anesthesia/Blood Transfusion Reactions: No Reported Reaction Past Psychological History: No Psychological Hx Reported Smoking Status: Current every day smoker Past Alcohol Use History: None Reported Past Drug Use History: None Reported Medications and Allergies Home Medications Medication Instructions Recorded Confirmed Type Aspirin EC [Ecotrin Low Dose] 81 mg PO DAILY 07/06/20 03/04/21 History Enalapril Maleate 2.5 mg PO DAILY 07/06/20 03/04/21 History Furosemide [Lasix] 20 mg PO DAILY 07/06/20 03/04/21 History Omeprazole 20 mg PO DAILY 07/06/20 03/04/21 History glipiZIDE XL [Glucotrol XL] 10 mg PO BID 07/06/20 03/04/21 History Atorvastatin [Lipitor] 10 mg PO HS 12/30/20 03/04/21 History EPINEPHrine (Auto Inject) [Epipen] 0.3 mg IM ONCE PRN 12/30/20 03/04/21 History Albuterol Inhaler [Ventolin Hfa 2 puff INHALATION RT-QID PRN 03/04/21 03/04/21 History Inhaler] Ferrous Sulfate [Feosol] 325 mg PO DAILY 03/04/21 03/04/21 History Allergies Allergy/AdvReac Type Severity Reaction Status Date / Time Penicillins Allergy Anaphylaxis Verified 03/04/21 12:58 Physical Examination - Vital Signs Vital Signs: Vital Signs Temp Pulse Resp BP Pulse Ox 03/04/21 15:03 69 18 124/74 98 03/04/21 14:03 66 16 128/81 99 03/04/21 12:30 71 18 119/60 97 03/04/21 12:01 82 18 134/71 98 03/04/21 11:43 98.3 F 87 20 118/62 97 Intake and Output 03/04/21 03/04/21 03/04/21 06:59 14:59 22:59 Other: Weight 82.1 kg Patient is an elderly male, in no acute distress. Patient is alert awake oriented to time place and person. Patient knows it is February 2021 and that he is in [facility]. Speech and language functions are normal. Attention, concentration and fund of knowledge is adequate. Patient can name and repeat very well. On cranial examination, pupils are round and reacting to light, visual luna are full on confrontation, extraocular muscles are intact with no nystagmus. Face is symmetric, tongue protrudes to the midline. Palatal elevation and sens ation normal, hearing is severely decreased and shoulder shrug normal, facial sensation normal. Shoulder shrug normal. Patient has history of left shoulder replacement. On muscle strength testing, there is no pronator drift and the strength is normal in arms and legs distally and proximally except hip flexion which is 3+ to 4 on the left because of pain. Deep tendon reflexes are symmetric, 1+ to 2 in bilateral upper limbs. Trace at the knees, absent ankles and plantars are probably upgoing bilaterally. Sensory to touch is equal with no neglect. Cerebellar function showed no ataxia for [id number] testing. No dysdiadochokinesia. Tone and bulk of muscles normal. Gait not checked. On general examination, there is no carotid bruit or murmur, S1-S2 audible. Abdomen is soft nontender. Chest is clear. Mild peripheral edema. Results - Laboratory Findings CBC and BMP: 03/04/21 12:24 03/04/21 12:24 Abnormal Lab Findings: Abnormal Labs 03/04/21 03/04/21 03/04/21 12:24 12:24 14:20 RBC 4.20 L Hgb 12.4 L Hct 37.8 L RDW 17.6 H Plt Count 80 L Monocytes # 1.6 H Sodium 136 L Carbon Dioxide 21 L BUN 26 H Glucose 271 H AST 69 H ALT 60 H Alkaline Phosphatase 147 H Total Protein 8.3 H Ur Specific [place] >1.050 H Urine Protein Trace H Urine Glucose (UA) 4+ H Assessment and Plan Assessment: * Transient blurred vision and left facial numbness, unclear etiology. Rule out TIA. * Evidence of 4 mm thick small left-sided subdural hematoma, probably due to the recent fall on 02/17/2021. * Mild cognitive impairment * Hard of hearing Plan: * Patient to undergo MRI of the brain. * EEG * Hold aspirin for now because of evidence of small subdural hematoma. May need surveillance CT scans as outpatient as well. Once hematoma has resolved, suggest resume aspirin as soon as possible. * 2-D echo to rule out embolic source. * Telemetry monitoring * Dr. Ahuja will resume neurology service over the weekend. * Discussed with patient's daughter in detail.
--- NOTE | 2021-03-05 11:13 | P.PN ---
Subjective Patient is doing well today. He was up walking with his walker to the bathroom. His daughter is at bedside. Objective - Vital Signs Vital signs: Vital Signs Temp 98.2 F 03/05/21 08:00 Pulse 71 03/05/21 08:00 Resp 18 03/05/21 08:00 BP 113/58 03/05/21 08:00 Pulse Ox 97 03/05/21 08:00 Intake & Output 03/04/21 03/05/21 03/05/21 18:59 06:59 18:59 Intake Total 180 Output Total 100 Balance -100 180 Weight 82.1 kg 82.1 kg Intake: Oral 180 Output: Urine 100 Other: Voiding Method Urinal Urinal Diaper Diaper # Voids 1 - Exam General: The patient is awake and alert, in no distress Eye: there is normal conjunctiva bilaterally. Neck: The neck is supple, there is no JVD. Cardiovascular: Normal S1-S2, no S3-S4, no murmurs. Respiratory: Lungs clear to auscultation bilaterally Gastrointestinal: Abdomen is soft, nontender Musculoskeletal: There is no pedal edema. Neurological:. Speech is normal. Skin: Skin is warm and dry - Labs CBC & Chem 7: 03/04/21 12:24 03/04/21 12:24 Labs: Abnormal Lab Results - Last 24 Hours (Table) 03/04/21 03/04/21 03/04/21 Range/Units 12:24 12:24 14:20 RBC 4.20 L (4.30-5.90) m/uL Hgb 12.4 L (13.0-17.5) gm/dL Hct 37.8 L (39.0-53.0) % RDW 17.6 H (11.5-15.5) % Plt Count 80 L (150-450) k/uL Monocytes # 1.6 H (0-1.0) k/uL Sodium 136 L (137-145) mmol/L Carbon Dioxide 21 L (22-30) mmol/L BUN 26 H (9-20) mg/dL Glucose 271 H (74-99) mg/dL POC Glucose (mg/dL) (75-99) mg/dL AST 69 H (17-59) U/L ALT 60 H (4-49) U/L Alkaline Phosphatase 147 H (38-126) U/L Total Protein 8.3 H (6.3-8.2) g/dL Ur Specific [place] >1.050 H (1.001-1.035) Urine Protein Trace H (Negative) Urine Glucose (UA) 4+ H (Negative) 03/04/21 03/05/21 Range/Units 17:52 06:15 RBC (4.30-5.90) m/uL Hgb (13.0-17.5) gm/dL Hct (39.0-53.0) % RDW (11.5-15.5) % Plt Count (150-450) k/uL Monocytes # (0-1.0) k/uL Sodium (137-145) mmol/L Carbon Dioxide (22-30) mmol/L BUN (9-20) mg/dL Glucose (74-99) mg/dL POC Glucose (mg/dL) 185 H 121 H (75-99) mg/dL AST (17-59) U/L ALT (4-49) U/L Alkaline Phosphatase (38-126) U/L Total Protein (6.3-8.2) g/dL Ur Specific [place] (1.001-1.035) Urine Protein (Negative) Urine Glucose (UA) (Negative) Assessment and Plan Assessment: 1. Suspected acute CVA/stroke 2. 4 mm subdural hematoma along the left frontal convexity 3. Underlying type 2 diabetes 4. COPD without exacerbation 5. Other medical problems, hypertension, hyperlipidemia, chronic thrombocytopenia, bilateral hearing loss, history of tobacco abuse I reviewed his medication list and lab work results. Appreciate neurology recommendations Computed tomography scan of the head in the ER showed a 4 mm thick subdural hematoma along the left frontal convexity. No other acute findings noted on CT. Hold home dose of aspirin. MRI of the brain ordered. Continue neuro check. Stroke protocol. Repeat lab work in the morning. Echocardiogram. PT/OT/speech pathology evaluation.
[2021-03-05 11:51] LABS: Glucose,Whole Blood 270 mg/dL (75-99)
--- NOTE | 2021-03-05 16:16 | MR ---
EXAMINATION TYPE: MR brain wo con DATE OF EXAM: 03/05/2021 COMPARISON: None HISTORY: cva, subacute subdural hematoma Multiplanar multiecho imaging of the brain without contrast. There is cerebral cortical atrophy. There is no mass effect nor midline shift. There is thinning of t he corpus callosum. Brainstem is intact. There is no evidence of a posterior fossa mass. Diffusion im ages show no evidence of an acute infarct. On the T2 and FLAIR images there is increased signal in the subependymal periventricular white matter . There are small foci of increased signal in the white matter both cerebral hemispheres adjacent to the ventricles and measuring up to 5 mm. Total number is less than 20. There is mild enlargement of t he ventricles. Brainstem appears intact. There is no evidence of posterior fossa mass. There is no ev idence of orbital mass. There is linear increased signal on the FLAIR images in the subdural space over the left posterior fr ontal convexity. This is consistent with subdural subacute hematoma which measures 4 mm in thickness. IMPRESSION: There is subdural hemorrhage over the left posterior frontal lobe convexity which is new compared to the head CT scan of 02/17/2021. 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 Mild hydrocephalus.
--- NOTE | 2021-03-05 16:25 | P.PN ---
Subjective Progress Note Date: 03/05/21 The patient is an 89-year-old male who is seen in neurologic follow-up on March 05, 2021, via telemedicine. The patient's daughter is present at the bedside, at the time of the evaluation. She tells me that initially her father had symptoms of blurred vision from his left eye, left facial numbness and left upper extremity weakness and numbness. She says that yesterday, the patient is unable to lift his left arm from the bed. His speech was reportedly slow. Today, the patient is able to raise his left arm from the bed. His speech has improved. He continues to have blurred vision from his left eye, which he feels is currently getting worse. He also feels his left facial numbness is getting worse as well. The patient himself as well as his daughter are anxious for him to be discha rged. The patient reported to me that he was not interested in spending in of the night in the hospital if he was unable to get his MRI done today. Objective - Vital Signs Vital signs: Vital Signs Temp 98.0 F 03/05/21 14:00 Pulse 78 03/05/21 14:00 Resp 16 03/05/21 14:00 BP 111/60 03/05/21 12:00 Pulse Ox 96 03/05/21 14:00 Intake & Output 03/04/21 03/05/21 03/05/21 18:59 06:59 18:59 Intake Total 780 Output Total 100 250 Balance -100 530 Weight 82.1 kg 82.1 kg Intake: Oral 780 Output: Urine 100 250 Other: Voiding Method Urinal Urinal Diaper Diaper # Voids 1 1 # Bowel Movements 1 - Exam Gen.: The patient is reclining in the bed. He is in no acute distress. HEENT: Head is atraumatic, normocephalic. Fundus not visualized. There is no scleral icterus. Mucous membranes are moist. Neurological examination Mental status: The patient is awake, alert and oriented 3. His speech is clear. There is no dysarthria. Cranial nerves: Pupils are equal, round and reactive to light. There is no obvious facial asymmetry. Tongue protrudes midline. Motor: The patient is able to easily raise his left arm from the bed. CT scan of the brain is reviewed, as well as CT angiogram. - Labs CBC & Chem 7: 03/04/21 12:24 03/04/21 12:24 Labs: Abnormal Lab Results - Last 24 Hours (Table) 03/04/21 03/04/21 03/05/21 Range/Units 14:20 17:52 06:15 POC Glucose (mg/dL) 185 H 121 H (75-99) mg/dL Ur Specific [place] >1.050 H (1.001-1.035) Urine Protein Trace H (Negative) Urine Glucose (UA) 4+ H (Negative) 03/05/21 Range/Units 11:48 POC Glucose (mg/dL) 270 H (75-99) mg/dL Ur Specific [place] (1.001-1.035) Urine Protein (Negative) Urine Glucose (UA) (Negative) Assessment and Plan Assessment: 1. Possible right lacunar infarct 2. Small left frontal subdural hematoma 3. Cortical atrophy Plan: 1. MRI of brain-patient is currently on his way to receive this test. Daughters present at the time of the evaluation of this patient. She is requesting that the patient be discharged home today, if the MRI is negative for acute infarct. She is concerned about the patient's exposure to Covid 19. I am in agreement with discharge home if the MRI shows no acute infarct and 2-D echocardiogram is without signs of shunt or PFO Time with Patient: Less than 30 (spent 15 minutes with patient's via telemedicine)
[2021-03-05 16:55] LABS: Glucose,Whole Blood 111 mg/dL (75-99)
[2021-03-05 20:07] LABS: Glucose,Whole Blood 197 mg/dL (75-99)
[2021-03-05 20:30] LABS: Chol/HDL Ratio 2.7 Ratio; HDL Cholesterol 41.1 mg/dL (40.00-60.00); LDL Cholesterol,Calculated 36.5 mg/dL (0.0-131.0); VLDL Calculation 33.4 mg/dL (5.00-40.00)
[2021-03-05 21:57] VITALS: RESP 18
[2021-03-05] MEDS: ATORVASTATIN 10 MG TAB PO SCH (21:57)
[2021-03-06 06:08] LABS: Glucose,Whole Blood 126 mg/dL (75-99)
[2021-03-06] MEDS: INSULIN ASPART (NovoLOG) 100 UNIT/ML VIAL SQ SCH ×2 (06:12→12:17)
[2021-03-06] MEDS: PANTOPRAZOLE 40 MG TABLET PO SCH (06:26)
[2021-03-06] MEDS: FUROSEMIDE 20 MG TAB PO SCH (08:41)
[2021-03-06] MEDS: lisinopriL 5 MG TAB PO SCH (08:41)
[2021-03-06 09:14] VITALS: PULSE 64; TEMP 97.7
[2021-03-06 11:43] LABS: Glucose,Whole Blood 171 mg/dL (75-99)
--- NOTE | 2021-03-06 13:10 | P.DS ---
Providers Date of admission: 03/04/21 14:02 Expected date of discharge: 03/06/21 Attending physician: Gregory Wilson Consults: 03/04/21 14:03 Consult Physician Urgent Consulting Provider: Kathrine Zuleta Consult Reason/Comments: CVA, subacute subdural hematoma Do you want consulting provider notified?: Yes Primary care physician: Joey Power [facility] Course: This is a 89-year-old male with complex past medical history noted below that presented to the emergency room with blurred vision and numbness involving the left side of his face. Patient was evaluated in the ER and admitted to the hospital for further management of his medical problems noted below 1. Suspected acute CVA/stroke ruled out with MRI of the brain 2. 4 mm subdural hematoma along the left frontal convexity 3. Underlying type 2 diabetes 4. COPD without exacerbation 5. Other medical problems, hypertension, hyperlipidemia, chronic thrombocytopenia, bilateral hearing loss, history of tobacco abuse I reviewed his medication list and lab work results. Patient was seen and evaluated by neurology Computed tomography scan of the head in the ER showed a 4 mm thick subdural hematoma along the left frontal convexity. No other acute findings noted on CT. Hold home dose of aspirin and repeat computed tomography scan as an outpatient to assure resolution of the subdural hematoma and at that time aspirin a be resumed Echocardiogram done that did not read. Patient and his daughter anxious to be discharged. They would like to follow-up with cardiology in the office regarding echocardiogram result Patient was seen and evaluated by me on the day of discharge. His symptoms completely resolved. He will be discharged home with his daughter in a stable condition. General: The patient is awake and alert, in no distress Eye: there is normal conjunctiva bilaterally. Neck: The neck is supple, there is no JVD. Cardiovascular: Normal S1-S2, no S3-S4, no murmurs. Respiratory: Lungs clear to auscultation bilaterally Gastrointestinal: Abdomen is soft, nontender Musculoskeletal: There is no pedal edema. Neurological:. Speech is normal. Skin: Skin is warm and dry Patient Condition at Discharge: Serious Plan - Discharge Summary Discharge Rx Participant: No New Discharge Prescriptions: Continue glipiZIDE XL [Glucotrol XL] 10 mg PO BID Omeprazole 20 mg PO DAILY Furosemide [Lasix] 20 mg PO DAILY Enalapril Maleate 2.5 mg PO DAILY EPINEPHrine (Auto Inject) [Epipen] 0.3 mg IM ONCE PRN PRN Reason: Anaphylaxis Atorvastatin [Lipitor] 10 mg PO HS Ferrous Sulfate [Iron (65 MG Elemental)] 325 mg PO DAILY Albuterol Inhaler [Ventolin Hfa Inhaler] 2 puff INHALATION RT-QID PRN PRN Reason: Shortness Of Breath Discontinued Aspirin EC [Ecotrin Low Dose] 81 mg PO DAILY Discharge Medication List Enalapril Maleate 2.5 mg PO DAILY 07/06/20 [History] Furosemide [Lasix] 20 mg PO DAILY 07/06/20 [History] Omeprazole 20 mg PO DAILY 07/06/20 [History] glipiZIDE XL [Glucotrol XL] 10 mg PO BID 07/06/20 [History] Atorvastatin [Lipitor] 10 mg PO HS 12/30/20 [History] EPINEPHrine (Auto Inject) [Epipen] 0.3 mg IM ONCE PRN 12/30/20 [History] Albuterol Inhaler [Ventolin Hfa Inhaler] 2 puff INHALATION RT-QID PRN 03/04/21 [History] Ferrous Sulfate [Iron (65 MG Elemental)] 325 mg PO DAILY 03/04/21 [History] Follow up Appointment(s)/Referral(s): Joey Zaragoza MD [Primary Care Provider] - 1-2 days
[2021-03-06 15:00] VITALS: BP 104/60
--- NOTE | 2021-05-05 08:22 | ECHOF ---
Referral Reason:CVA MEASUREMENTS -------- HEIGHT: 162.6 cm WEIGHT: 82.1 kg BP: 103/65 IVSd: 1.1 cm (0.6 - 1.1) LVIDd: 2.8 cm (3.9 - 5.3) LVPWd: 1.2 cm (0.6 - 1.1) EDV(Teich): 30 ml IVSs: 1.4 cm LVIDs: 2.2 cm LVPWs: 1.4 cm %IVS Thck: 31 % ESV(Teich): 16 ml EF(Teich): 47 % %FS: 22 % SV(Teich): 14 ml Ao Diam: 3.5 cm (2.0 - 3.7) LA Diam: 2.8 cm (2.7 - 3.8) AV Cusp: 2.3 cm (1.5 - 2.6) MV E Shaun: 0.69 m/s MV DecT: 221 ms MV Dec [place]: 3.1 m/s MV A Shaun: 0.79 m/s MV E/A Ratio: 0.88 MV PHT: 64 ms MR Vmax: 1.06 m/s MR maxP.49 mmHg AV Vmax: 0.96 m/s AV maxP.66 mmHg TR Vmax: 1.28 m/s TR maxP.59 mmHg RAP: 5.00 mmHg RVSP: 11.59 mmHg FINDINGS -------- This was a technically difficult study with suboptimal views. The left ventricular size is normal. There is mild concentric left ventricular hypertrophy. Overa ll left ventricular systolic function is normal with, an EF between 55 - 60 %. The right ventricle is normal in size. The left atrial size is normal. The right atrium was not well visualized. xx ml of Lumason was utilized for enhancement of images. Unable to visualize atrial septum. The aortic valve was not well visualized. The mitral valve was not well visualized. There is trace mitral regurgitation. The tricuspid valve was not well visualized. Trace tricuspid regurgitation present. Right ventric ular systolic pressure is normal at < 35 mmHg. The pulmonic valve was not well visualized. The aortic root size is normal. IVC Not well visulized. There is no pericardial effusion. CONCLUSIONS -------- 1. The left ventricular size is normal. 2. There is mild concentric left ventricular hypertrophy. 3. Overall left ventricular systolic function is normal with, an EF between 55 - 60 %. 4. There is trace mitral regurgitation. 5. Trace tricuspid regurgitation present. 6. There is no pericardial effusion. SALESPERSON FURS: Theresa Cleaning RDCS
== END 2021-03-06 16:01 | disposition home or self-care (01) ==
LOC: EC 11:35 → INTOOBSV 14:02 → 3SCARD 14:02 → UNDODISIN 03-06 16:01
PROVIDERS: ADMIT Internal Medicine; ATTEND Internal Medicine
DX: I62.02 Nontraumatic subacute subdural hemorrhage (principal); G91.9 Hydrocephalus, unspecified; D69.6 Thrombocytopenia, unspecified; E11.9 Type 2 diabetes mellitus without complications; D64.9 Anemia, unspecified; J44.9 Chronic obstructive pulmonary disease, unspecified; G31.9 Degenerative disease of nervous system, unspecified; F02.80 Dementia in other diseases classified elsewhere, unspecified severity, without behavioral disturbance, psychotic disturbance, mood disturbance, and anxiety; Z20.822 Contact with and (suspected) exposure to COVID-19; R90.82 White matter disease, unspecified; G83.24 Monoplegia of upper limb affecting left nondominant side; H53.8 Other visual disturbances; E78.5 Hyperlipidemia, unspecified; I10 Essential (primary) hypertension; R91.1 Solitary pulmonary nodule; R79.89 Other specified abnormal findings of blood chemistry; H91.93 Unspecified hearing loss, bilateral; F17.200 Nicotine dependence, unspecified, uncomplicated; J98.11 Atelectasis; Z79.82 Long term (current) use of aspirin; Z79.84 Long term (current) use of oral hypoglycemic drugs; Z79.899 Other long term (current) drug therapy; Z88.0 Allergy status to penicillin; Z85.828 Personal history of other malignant neoplasm of skin; Z85.038 Personal history of other malignant neoplasm of large intestine; Z90.49 Acquired absence of other specified parts of digestive tract; Z91.81 History of falling; Z87.19 Personal history of other diseases of the digestive system; Z98.890 Other specified postprocedural states
CPT/HCPCS: 99291; 36415; 93005; 97116; 97162; 80061; 80053; 84484; 85025; 85610; 85730; 81003; 87635; 71046; 70496; 70450; 70498; 70551; G0378 ×3; C8929; Q9950; Q9967; 93306

== ENCOUNTER 2021-04-14 15:41 | Emergency (ER) | payer MEDICARE ==
[2021-04-14 15:56] VITALS: BP 132/63; PULSE 76; RESP 18; TEMP 97.4
[2021-04-14] MEDS ORDERED: oxyCODONE-APAP 10-325MG 1 EACH TAB PO STA ×2 (16:14→16:52)
--- NOTE | 2021-04-14 16:20 | ED ---
General Adult HPI - General Chief complaint: Extremity Problem,Nontraumatic Stated complaint: lt sided numbness Time Seen by Provider: 04/14/21 16:06 Source: patient Mode of arrival: wheelchair Limitations: no limitations - History of Present Illness Initial comments: Dictation was produced using [employer] dictation software. please excuse any grammatical, word or spelling errors. Chief Complaint: 89-year-old male presents with left shoulder pain History of Present Illness: Patient's 89-year-old male who presents with left shoulder pain starting at noon today. He went to his primary care physician's office on mid-level provider. Patient reported to the mid-level provider that he says he can move his arm. Did not explain that is because of pain. He is here today to emergency department stating that he can move his arm because of pain. Patient has history of strokes. He has residual left-sided numbness and sees a neurologist for this. He has numbness and paresthesias chronically for the last several months to the left face, left upper extremity and left lower extremity. He presents with daughter reports that patient was seen by mid-level provider at primary care physician's office name Alana who was concerned that perhaps maybe was having a stroke. The ROS documented in this emergency department record has been reviewed and confirmed by me. Those systems with pertinent positive or negative responses have been documented in the HPI. All other systems are other negative and/or noncontributory. PHYSICAL EXAM: General Impression: Alert and oriented x3, not in acute distress HEENT: Normocephalic atraumatic, extra-ocular movements intact, pupils equal and reactive to light bilaterally, mucous membranes moist. Cardiovascular: Heart regular rate and rhythm Chest: Able to complete full sentences, no retractions, no tachypnea Abdomen: abdomen soft, non-tender, non-distended, no organomegaly Musculoskeletal: Pulses present and equal in all extremities, no peripheral edema Left shoulder: He has significant pain at the left shoulder with palpation to the left shoulder. He has no drift when you hold the left shoulder up in front of him approximately 12 inches from the gurney. Passive range of motion pass this level causes exquisite left shoulder pain. Motor: no focal deficits noted Neurological: CN II-XII grossly intact, no focal motor or sensory deficits noted, delta NIH 0, deficit to light touch of the left face, left upper extremity left lower extremity Skin: Intact with no visualized rashes Psych: Normal affect and mood ED course: 89-year-old male presents to the emergency department for left shoulder pain. Told the mid-level provider PCPs office that he can't move his arm. Patient has significant pain to the left shoulder with any sort of movement. He has residual stroke symptoms from stroke suffered several months ago. His delta NIH score is 0. He has no drift of the left lower extremity. He is able to hold it up against gravity without any drift. Passive range of motion is significantly limited by pain. Daughter at the bedside is not known of any recent falls or inciting traumatic events. An x-ray shows radiopaque foreign bodies in the hand. 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 Shoulder x-ray shows no evidence of hardware failure. 2. Be degenerative changes of the right acromio clavicular joint. Patinent reevaluated at the bedside at 5:45 PM found to be in stable medical condition. He reports significant improvement with by mouth analgesia. Patient given by mouth analgesia prescription. Patient advised to follow-up with his orthopedic surgeon. Patient be discharged. - Related Data Home Medications Medication Instructions Recorded Confirmed Enalapril Maleate 2.5 mg PO DAILY 07/06/20 04/14/21 Furosemide [Lasix] 20 mg PO DAILY 07/06/20 04/14/21 Omeprazole 20 mg PO DAILY 07/06/20 04/14/21 glipiZIDE XL [Glucotrol XL] 10 mg PO BID 07/06/20 04/14/21 Atorvastatin [Lipitor] 10 mg PO HS 12/30/20 04/14/21 Ferrous Sulfate [Iron (65 MG 325 mg PO DAILY 03/04/21 04/14/21 Elemental)] Gabapentin [Neurontin] 100 mg PO HS 04/14/21 04/14/21 Previous Rx's Medication Instructions Recorded oxyCODONE HCL/ACETAMINOPHEN 1 tab PO Q6HR PRN 3 Days #12 tab 04/14/21 [Percocet 5-325 mg] Allergies Allergy/AdvReac Type Severity Reaction Status Date / Time Penicillins Allergy Anaphylaxis Verified 04/14/21 16:42 Review of Systems ROS Statement: Those systems with pertinent positive or pertinent negative responses have been documented in the HPI. ROS Other: All systems not noted in ROS Statement are negative. Past Medical History Past Medical History: Asthma, Diabetes Mellitus, Hypertension Additional Past Medical History / Comment(s): colon CA, gallstones removed, History of Any Multi-Drug Resistant Organisms: None Reported Past Surgical History: Orthopedic Surgery Additional Past Surgical History / Comment(s): hip, back, shoulder surgeries hernia repair, eye implants Past Anesthesia/Blood Transfusion Reactions: No Reported Reaction Past Psychological History: No Psychological Hx Reported Smoking Status: Current every day smoker Past Alcohol Use History: None Reported Past Drug Use History: None Reported General Exam Limitations: no limitations Course Vital Signs 04/14/21 15:51 Temperature 97.4 F L Pulse Rate 76 Respiratory 18 Rate Blood Pressure 132/63 O2 Sat by Pulse 98 Oximetry Disposition Clinical Impression: Shoulder pain Disposition: HOME SELF-CARE Condition: Fair Additional Instructions: follow up w shoulder surgeon Prescriptions: oxyCODONE HCL/ACETAMINOPHEN [Percocet 5-325 mg] 1 tab PO Q6HR PRN 3 Days #12 tab PRN Reason: Pain Is patient prescribed a controlled substance at d/c from ED?: Yes Referrals: Joey Zaragoza MD [Primary Care Provider] - 1-2 days
--- NOTE | 2021-04-14 17:09 | XR ---
EXAMINATION TYPE: XR hand complete LT DATE OF EXAM: 04/14/2021 CLINICAL HISTORY: swelling. TECHNIQUE: Frontal, lateral and oblique images of the left hand are obtained. COMPARISON: None FINDINGS: There is amputation of the second digit at the level of the mid metacarpal shaft. There are extensive degenerative changes most notably at the proximal interphalangeal joints, metacarpophalang eal joints, first carpometacarpal joint, and with chondrocalcinosis at the wrist. There is a punctate radiopaque foreign body at the pad of the first digit. There is a 2 mm linear radiopaque foreign bod y at the radial aspect of the second metacarpal base. No acute fracture or dislocation. No significan t soft tissue swelling. IMPRESSION: 1. 2 mm radiopaque foreign body of the palm at the radial aspect of the second metacarpal base. 2. Punctate radiopaque foreign body in the pad of the thumb. 3. Amputation of the second digit at the level of the mid metacarpal shaft. 4. Extensive degenerative changes.
--- NOTE | 2021-04-14 17:15 | XR ---
EXAMINATION TYPE: XR shoulder complete BILAT DATE OF EXAM: 04/14/2021 COMPARISON: 12/30/2020. HISTORY: . Pain. Left arm weakness and numbness. TECHNIQUE: Internal rotation, external rotation, and scapular Y views of the bilateral shoulders. FINDINGS: There are bilateral reverse shoulder total arthroplasties with no evidence of hardware frac ture, dislocation, or loosening. There is no acute displaced osseous abnormality. Degenerative change of the right acromioclavicular joint. No visualized displaced rib fractures. No significant soft tis jesse swelling. IMPRESSION: Bilateral reverse total shoulder arthroplasties with no evidence of hardware failure.
== END 2021-04-14 18:13 | disposition home or self-care (01) ==
LOC: EC 15:41
DX: M25.512 Pain in left shoulder (principal); E11.9 Type 2 diabetes mellitus without complications; I10 Essential (primary) hypertension; J45.909 Unspecified asthma, uncomplicated; F17.200 Nicotine dependence, unspecified, uncomplicated; Z79.84 Long term (current) use of oral hypoglycemic drugs; Z79.899 Other long term (current) drug therapy; Z88.0 Allergy status to penicillin
CPT/HCPCS: 99283

== ENCOUNTER → 2021-04-15 | Outpatient (CLI) | payer MEDICARE ==
--- NOTE | 2021-04-18 08:47 | PE ---
EXAMINATION TYPE: PET CT fusion skull to thigh DATE OF EXAM: 04/15/2021 COMPARISON: Chest CT February 17, 2021. CT abdomen and pelvis August 28, 2020 HISTORY: Basal cell cancer of left neck on surgical excision recently, very remote history of colon c ancer in the past . TECHNIQUE: Following the intravenous administration of 9.74 mCi of F-18 FDG, whole body images are p erformed from the skull base to the midthigh. Images are reviewed on the computer in the coronal, ax ial, and sagittal planes. Reconstructed rotating images are created on independent workstation and r eviewed on the computer. A localization and attenuation correction CT is performed in conjunction w ith the PET scan. Blood glucose level equals 146. SCAN: Initial Scan FINDINGS: SKULL BASE AND NECK: No suspicious abnormal hypermetabolic uptake. CHEST, MEDIASTINUM, AND HILAR REGION: There is persistent suspicious 1.6 x 1.4 cm left mid lung nodul e axial image 78 . There is persistent suspicious right basilar nodule or nodular consolidation measu ring 2.2 x 1.2 cm axial image 103. There is persistent suspicious 2.1 x 1.9 cm posterior left basilar nodule axial image 111. All are ametabolic but new from August 28 CT making worrisome. No areas of abnormal hypermetabolic uptake. ABDOMEN AND PELVIS: Persistent simple appearing thin-walled 1.8 cm cyst left hepatic lobe axial image 115. Just anterior and inferior to this there is heterogeneous hypermetabolic mass measuring approxi mately 6.0 cm long axis axial image 118, max SUV is 10.82. Lesion not well seen on noncontrast CT can 't accurately measure. Lesion new from August 28 CT. Persistent cortical thinning and simple appearing thin cyst formation and both kidneys with normal ex cretion including left-sided extrarenal pelvis redemonstrated. 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 No additional areas of abnormal hypermetabolic uptake. OSSEOUS STRUCTURES: Nonspecific hypermetabolic uptake surrounding bilateral shoulder prosthetics. Mil d hypermetabolic uptake throughout the right hip prosthesis. Nonspecific uptake anterior left L5 leve l axial image 176 corresponds to site of large anterior osteophyte. Multilevel large spurring through out the spine. OTHER CT: Mild to moderate calcified plaque bilateral carotid bulb level. Bilateral subareolar flame-shaped gynecomastia. Small sized hiatal hernia. Cholecystectomy clips. Sigmoid colonic diverticula. Partial proximal right-sided colectomy changes. Prominent multilevel spurring in the spine. Mild to moderate calcified plaque infrarenal abdominal ao rta. IMPRESSION: New suspicious hepatic lesion along with new suspicious ametabolic pulmonary nodules worr isome for metastatic disease. Nonspecific osseous uptake including anterior left L5 level.
== END | disposition home or self-care (01) ==
LOC: RADPETMAIN 15:23
PROVIDERS: ATTEND Internal Medicine Hematology & Oncology
DX: Z85.828 Personal history of other malignant neoplasm of skin (principal); Z85.038 Personal history of other malignant neoplasm of large intestine
CPT/HCPCS: 78815; A9552

== ENCOUNTER 2021-05-04 08:39 | Day surgery (SDC) | payer MEDICARE ==
[2021-05-04 08:55] VITALS: TEMP 98
[2021-05-04] MEDS ORDERED: ALPRAZolam 0.25 MG TAB PO STA (09:00)
[2021-05-04 09:19] LABS: Mean Platelet Volume 9.9
[2021-05-04 09:30] LABS: Prothrombin Time 10.8 sec (9.0-12.0)
[2021-05-04 09:31] LABS: Platelet Count 93 k/uL (150-450)
[2021-05-04 09:51] LABS: Glucose,Whole Blood 179 mg/dL (75-99)
--- NOTE | 2021-05-04 10:48 | US ---
EXAMINATION TYPE: US biopsy liver DATE OF EXAM: 05/04/2021 COMPARISON: NONE HISTORY: Left lobe liver mass FINDINGS: The procedure was explained to the patient. The risks, complications, benefits, and alternatives wer e discussed and any questions were answered. Informed consent was obtained. Patient was placed supi ne on the CT table and prepped and draped in the usual sterile fashion. All elements of maximal barrier and sterile technique utilized. Utilizing CT guidance, an 18 gauge core biopsy needle access into the left lobe of the liver was ach ieved and a single 18 gauge core sample was obtained. A single FNA sample was also obtained and patho logy confirmed adequate sample. The patient was stable throughout the procedure and remained stable u rylie discharge. IMPRESSION: 1. Successful 18 gauge core biopsy of the liver.
[2021-05-04 14:25] VITALS: PULSE 58
[2021-05-04 14:31] VITALS: RESP 16
[2021-05-04 15:25] VITALS: BP 129/63
== END 2021-05-04 14:00 | disposition home or self-care (01) ==
LOC: RADPROMAIN 08:39
PROVIDERS: ATTEND Internal Medicine Hematology & Oncology
DX: C78.7 Secondary malignant neoplasm of liver and intrahepatic bile duct (principal); Z88.0 Allergy status to penicillin
CPT/HCPCS: 36415; 47000; 76942; 82565; 85049; 85610; 88173; 88305; 88307; 88341; 88342

== ENCOUNTER 2021-05-04 17:45 | Observation (INO) | payer MEDICARE ==
[2021-05-04] MEDS ORDERED: MORPHINE SULFATE 4 MG/ML SYRINGE IV STA (19:06)
[2021-05-04 19:48] LABS: ALT 39 U/L (4-49); AST 63 U/L (17-59); African American GFR (CKD) >90 (>60 ml/min/1.73 sqM); Albumin 4.1 g/dL (3.5-5.0); Alkaline Phosphatase 272 U/L (38-126); Amylase 71 U/L (30-110); Anion Gap 9 mmol/L; Blood Urea Nitrogen 17 mg/dL (9-20); Calcium 9.1 mg/dL (8.4-10.2); Carbon Dioxide 21 mmol/L (22-30); Chloride 108 mmol/L (98-107); Glucose 109 mg/dL (74-99); Lipase 174 U/L (23-300); Non-African American GFR(CKD) 80 (>60 ml/min/1.73 sqM); Potassium 4.2 mmol/L (3.5-5.1); Sodium 138 mmol/L (137-145); Total Bilirubin 0.8 mg/dL (0.2-1.3); Total Protein 8.3 g/dL (6.3-8.2)
[2021-05-04 19:58] LABS: Partial Thromboplastin Time 23.6 sec (22.0-30.0); Prothrombin Time 10.3 sec (9.0-12.0)
[2021-05-04 20:02] LABS: Basophils # (A) 0.1 k/uL (0-0.2); Basophils % (A) 1 %; Eosinophils # (A) 0.2 k/uL (0-0.7); Eosinophils % (A) 2 %; HCT 43.1 % (39.0-53.0); HGB 14.2 gm/dL (13.0-17.5); Lymphocytes # (A) 1.8 k/uL (1.0-4.8); Lymphocytes % (A) 21 %; MCH 34.1 pg (25.0-35.0); MCV 103.3 fL (80.0-100.0); Macrocytosis Slight; Mean Platelet Volume 10.3; Monocytes # (A) 1.3 k/uL (0-1.0); Monocytes % (A) 15 %; Neutrophils # (A) 4.9 k/uL (1.3-7.7); Neutrophils % (A) 58 %; Platelet Count 104 k/uL (150-450); RBC 4.18 m/uL (4.30-5.90); RDW 15.2 % (11.5-15.5); WBC 8.4 k/uL (3.8-10.6)
--- NOTE | 2021-05-04 20:40 | CT ---
EXAMINATION TYPE: CT abdomen pelvis w con DATE OF EXAM: 05/04/2021 COMPARISON: 04/15/2021 HISTORY: Abdominal pain post liver biopsy today. CT DLP: 1540.2 mGycm Automated exposure control for dose reduction was used. CONTRAST: Performed with IV Contrast, patient injected with 100ml mL of Isovue 300. There are multiple nodular densities in the lower lung field that measure up to 2.5 cm. There is no p leural effusion. There are multiple low-density areas in the liver. The largest is in the left lobe a nd measures 4.8 cm. Spleen is intact. Stomach is intact. There is no evidence of pancreatic mass. There is mild fluid around the liver. This measures up to 1 cm in thickness. There is no adrenal mass. Kidneys have normal size. There is no hydronephrosis. There are multiple bi lateral renal cortical cysts that measure up to 4.6 cm. There is no retroperitoneal adenopathy. There are multiple sigmoid diverticula. There is no diverticulitis. Bladder distends smoothly. There is me fide artifact from bilateral hip prosthesis. There is no free fluid in the pelvis. There is wall thickening and fat stranding in the right mid abdomen involving the distal ileum. There is previous surgery at the right colon. There is apparent right hemicolectomy. The lumbar vertebra show a mild degenerative first-degree L4-5 spondylolisthesis. There is multilevel spondylotic changes. There is no focal bone destruction. There is mild compression fracture of L2 ve rtebra with 20% loss of height. IMPRESSION: Multiple lower lobe masses consistent with metastatic disease. Hepatic hypodensities suspicious for m etastatic disease. There is some fluid around the liver that could relate to perihepatic hemorrhage in this patient with recent biopsy. There is extensive edema involving the distal ileum with fat stranding that appears new compared to t he recent exam. This could relate to ileitis. Sigmoid diverticulosis without diverticulitis.
[2021-05-04] MEDS ORDERED: NALOXONE 0.4 MG/ML 1 ML VIAL IV PRN (21:27)
[2021-05-04] MEDS ORDERED: MORPHINE SULFATE 4 MG/ML SYRINGE IV PRN (21:27)
[2021-05-04] MEDS ORDERED: ONDANSETRON 4 MG/2 ML VIAL IVP PRN (21:27)
--- NOTE | 2021-05-04 21:34 | ED ---
General Adult HPI - General Chief complaint: Abdominal Pain Stated complaint: Recheck/Liver Biopsy Time Seen by Provider: 05/04/21 19:02 Source: patient, RN notes reviewed, old records reviewed Mode of arrival: wheelchair Limitations: physical limitation - History of Present Illness Initial comments: 89-year-old male with liver biopsy performed today. He is presenting to the emergency department with abdominal pain. Patient was [facility] the [facility] without pain complaints or acute issues. He developed abdominal pain while at home shortly thereafter. He reports the pain is predominantly epigastric and right upper quadrant. He denies vomiting. Denies fever or chills. Denies chest pain. He is not on any anticoagulation. He was receiving biopsy for multiple liver masses. - Related Data Home Medications Medication Instructions Recorded Confirmed Enalapril Maleate 2.5 mg PO DAILY 07/06/20 05/04/21 Furosemide [Lasix] 20 mg PO DAILY 07/06/20 05/04/21 Omeprazole 20 mg PO DAILY 07/06/20 05/04/21 glipiZIDE XL [Glucotrol XL] 10 mg PO BID 07/06/20 05/04/21 Atorvastatin [Lipitor] 10 mg PO HS 12/30/20 05/04/21 Ferrous Sulfate [Iron (65 MG 325 mg PO DAILY 03/04/21 05/04/21 Elemental)] Gabapentin [Neurontin] 100 mg PO HS 04/14/21 05/04/21 Ibuprofen 200 mg PO Q8H PRN 04/28/21 05/04/21 Allergies Allergy/AdvReac Type Severity Reaction Status Date / Time Penicillins Allergy Anaphylaxis Verified 05/04/21 21:05 Review of Systems ROS Statement: Those systems with pertinent positive or pertinent negative responses have been documented in the HPI. ROS Other: All systems not noted in ROS Statement are negative. Past Medical History Past Medical History: Asthma, Cancer, Diabetes Mellitus, Hearing Disorder / Deafness, Hyperlipidemia, Hypertension Additional Past Medical History / Comment(s): colon CA and skin CA, gallstones removed, legally deaf History of Any Multi-Drug Resistant Organisms: None Reported Past Surgical History: Orthopedic Surgery Additional Past Surgical History / Comment(s): hip, back, shoulder surgeries, hernia repair, eye implants Past Anesthesia/Blood Transfusion Reactions: No Reported Reaction Additional Past Anesthesia/Blood Transfusion Reaction / Comment(s): no previous blood transfusion Past Psychological History: No Psychological Hx Reported Smoking Status: Current every day smoker Past Alcohol Use History: None Reported Past Drug Use History: None Reported General Exam Limitations: physical limitation General appearance: alert, in no apparent distress Head exam: Present: atraumatic, normocephalic Eye exam: Present: normal appearance, PERRL ENT exam: Present: normal exam Neck exam: Present: normal inspection. Absent: tenderness, meningismus Respiratory exam: Present: normal lung sounds bilaterally. Absent: respiratory distress, wheezes Cardiovascular Exam: Present: regular rate, normal rhythm GI/Abdominal exam: Present: soft, distended (Mild distention), tenderness (Epigastric tenderness). Absent: rebound, rigid Extremities exam: Present: normal inspection, normal capillary refill. Absent: pedal edema Neurological exam: Present: alert, oriented X3, CN II-XII intact. Absent: motor sensory deficit Psychiatric exam: Present: normal affect, normal mood Skin exam: Present: warm, dry, intact. Absent: cyanosis, diaphoretic Course Vital Signs 05/04/21 18:48 Temperature 98 F Pulse Rate 63 Respiratory 20 Rate Blood Pressure 103/45 O2 Sat by Pulse 97 Oximetry - Reevaluation(s) Reevaluation #1: 05/04/21 21:32 Patient reevaluated, resting comfortably, pain significantly improved. He has minimal abdominal tenderness on repeat exam. Medical Decision Making - Medical Decision Making 89-year-old male with abdominal pain status post liver biopsy. I did initiate workup including CBC, CMP, type and screen. Hemoglobin is 14.2 which is above the patient's norm. CT performed which does show concern for fluid collection around the liver measuring up to 1 cm consistent with hemorrhage status post biopsy. He is not anticoagulated. He has a normal PT/INR. His hemoglobin is stable. He feels much better after 1 dose of IV morphine. I did discuss case with Dr. Gomez, who will evaluate this patient in consultation. Repeat hemoglobin will be obtained at 11 PM at 6 AM. Pain medication will be available. The patient is not to receive any anticoagulant or antiplatelet medications. No IV fluids. Hemoglobin will be monitored closely. Case discussed with Dr. Mercedes who will admit. - Lab Data Result diagrams: 05/04/21 19:25 05/04/21 19:25 Lab Results 05/04/21 05/04/21 05/04/21 Range/Units 19:25 19:25 19:25 WBC 8.4 (3.8-10.6) k/uL RBC 4.18 L (4.30-5.90) m/uL Hgb 14.2 (13.0-17.5) gm/dL Hct 43.1 (39.0-53.0) % MCV 103.3 H (80.0-100.0) fL MCH 34.1 (25.0-35.0) pg MCHC 33.0 (31.0-37.0) g/dL RDW 15.2 (11.5-15.5) % Plt Count 104 L (150-450) k/uL MPV 10.3 Neutrophils % 58 % Lymphocytes % 21 % Monocytes % 15 % Eosinophils % 2 % Basophils % 1 % Neutrophils # 4.9 (1.3-7.7) k/uL Lymphocytes # 1.8 (1.0-4.8) k/uL Monocytes # 1.3 H (0-1.0) k/uL Eosinophils # 0.2 (0-0.7) k/uL Basophils # 0.1 (0-0.2) k/uL Macrocytosis Slight PT 10.3 (9.0-12.0) sec INR 1.0 (<1.2) APTT 23.6 (22.0-30.0) sec Sodium 138 (137-145) mmol/L Potassium 4.2 (3.5-5.1) mmol/L Chloride 108 H (98-107) mmol/L Carbon Dioxide 21 L (22-30) mmol/L Anion Gap 9 mmol/L BUN 17 (9-20) mg/dL Creatinine 0.80 (0.66-1.25) mg/dL Est GFR (CKD-EPI)AfAm >90 (>60 ml/min/1.73 sqM) Est GFR (CKD-EPI)NonAf 80 (>60 ml/min/1.73 sqM) Glucose 109 H (74-99) mg/dL Plasma Lactic Acid Bryn (0.7-2.0) mmol/L Calcium 9.1 (8.4-10.2) mg/dL Total Bilirubin 0.8 (0.2-1.3) mg/dL AST 63 H (17-59) U/L ALT 39 (4-49) U/L Alkaline Phosphatase 272 H (38-126) U/L Total Protein 8.3 H (6.3-8.2) g/dL Albumin 4.1 (3.5-5.0) g/dL Amylase 71 (30-110) U/L Lipase 174 (23-300) U/L Blood Type Blood Type Recheck Bld Type Recheck Status Antibody Screen Spec Expiration Date 05/04/21 05/04/21 Range/Units 19:25 19:25 WBC (3.8-10.6) k/uL RBC (4.30-5.90) m/uL Hgb (13.0-17.5) gm/dL Hct (39.0-53.0) % MCV (80.0-100.0) fL MCH (25.0-35.0) pg MCHC (31.0-37.0) g/dL RDW (11.5-15.5) % Plt Count (150-450) k/uL MPV Neutrophils % % Lymphocytes % % Monocytes % % Eosinophils % % Basophils % % Neutrophils # (1.3-7.7) k/uL Lymphocytes # (1.0-4.8) k/uL Monocytes # (0-1.0) k/uL Eosinophils # (0-0.7) k/uL Basophils # (0-0.2) k/uL Macrocytosis PT (9.0-12.0) sec INR (<1.2) APTT (22.0-30.0) sec Sodium (137-145) mmol/L Potassium (3.5-5.1) mmol/L Chloride (98-107) mmol/L Carbon Dioxide (22-30) mmol/L Anion Gap mmol/L BUN (9-20) mg/dL Creatinine (0.66-1.25) mg/dL Est GFR (CKD-EPI)AfAm (>60 ml/min/1.73 sqM) Est GFR (CKD-EPI)NonAf (>60 ml/min/1.73 sqM) Glucose (74-99) mg/dL Plasma Lactic Acid Bryn 1.4 (0.7-2.0) mmol/L Calcium (8.4-10.2) mg/dL Total Bilirubin (0.2-1.3) mg/dL AST (17-59) U/L ALT (4-49) U/L Alkaline Phosphatase (38-126) U/L Total Protein (6.3-8.2) g/dL Albumin (3.5-5.0) g/dL Amylase (30-110) U/L Lipase (23-300) U/L Blood Type O Positive Blood Type Recheck O Pos Bld Type Recheck Status No Antibody Screen NEGATIVE Spec Expiration Date 05/07/20212324 Disposition Clinical Impression: Abdominal pain, History of liver biopsy, Hemorrhage following liver biopsy Disposition: ADMITTED IP TO THIS [facility] Condition: Stable Is patient prescribed a controlled substance at d/c from ED?: No Referrals: Joey Zaragoza MD [Primary Care Provider] - 1-2 days Decision to Admit Reason: Admit from EC Decision Date: 05/04/21 Decision Time: 21:31
[2021-05-04 23:08] LABS: Glucose,Whole Blood 114 mg/dL (75-99)
[2021-05-05 00:04] LABS: Basophils # (A) 0.1 k/uL (0-0.2); Basophils % (A) 1 %; Eosinophils # (A) 0.2 k/uL (0-0.7); Eosinophils % (A) 2 %; HCT 44.2 % (39.0-53.0); Lymphocytes # (A) 2.4 k/uL (1.0-4.8); Lymphocytes % (A) 25 %; MCH 33.4 pg (25.0-35.0); MCHC 31.8 g/dL (31.0-37.0); MCV 105.1 fL (80.0-100.0); Macrocytosis Moderate; Mean Platelet Volume 9.7; Monocytes # (A) 1.5 k/uL (0-1.0); Monocytes % (A) 15 %; Neutrophils # (A) 5.5 k/uL (1.3-7.7); Neutrophils % (A) 56 %; Platelet Count 115 k/uL (150-450); RDW 15.2 % (11.5-15.5); WBC 9.9 k/uL (3.8-10.6)
--- NOTE | 2021-05-05 03:23 | P.HPIM ---
History of Present Illness H&P Date: 05/04/21 Chief Complaint: Abdominal pain 89-year-old male with diabetes mellitus hypertension and history of colon cancer and skin cancer Patient comes in complaining of sudden onset abdominal pain mainly right upper quadrant sharp in nature 8 out of 10 in severity. Patient had underwent ultrasound-guided liver biopsy today for suspected masses to rule out metastatic disease. Patient tolerated procedure well and was and home however shortly after he arrived home he started complaining of right upper quadrant abdominal pain denies any associated nausea vomiting fevers or illn esses denies any GI bleeding. She was brought back to the hospital for eval ration. Currently patient seems to be comfortable pain controlled with medications. Patient otherwise denies any chest pain trouble breathing nausea or vomiting denies any fevers or chills denies any, to the belly. In the ED hemoglobin was stable vital signs were stable patient admitted [facility] and surgery evaluation in the morning Review of Systems Pertinent positives as noted in HPI. All other systems were reviewed and are negative Past Medical History Past Medical History: Asthma, Cancer, Diabetes Mellitus, Hearing Disorder / Deafness, Hyperlipidemia, Hypertension Additional Past Medical History / Comment(s): colon CA and skin CA, gallstones removed, legally deaf History of Any Multi-Drug Resistant Organisms: None Reported Past Surgical History: Orthopedic Surgery Additional Past Surgical History / Comment(s): hip, back, shoulder surgeries, hernia repair, eye implants Past Anesthesia/Blood Transfusion Reactions: No Reported Reaction Additional Past Anesthesia/Blood Transfusion Reaction / Comment(s): no previous blood transfusion Past Psychological History: No Psychological Hx Reported Smoking Status: Current every day smoker Past Alcohol Use History: None Reported Past Drug Use History: None Reported Medications and Allergies Home Medications Medication Instructions Recorded Confirmed Type Enalapril Maleate 2.5 mg PO DAILY 07/06/20 05/04/21 History Furosemide [Lasix] 20 mg PO DAILY 07/06/20 05/04/21 History Omeprazole 20 mg PO DAILY 07/06/20 05/04/21 History glipiZIDE XL [Glucotrol XL] 10 mg PO BID 07/06/20 05/04/21 History Atorvastatin [Lipitor] 10 mg PO HS 12/30/20 05/04/21 History Ferrous Sulfate [Iron (65 MG 325 mg PO DAILY 03/04/21 05/04/21 History Elemental)] Gabapentin [Neurontin] 100 mg PO HS 04/14/21 05/04/21 History Ibuprofen 200 mg PO Q8H PRN 04/28/21 05/04/21 History Allergies Allergy/AdvReac Type Severity Reaction Status Date / Time Penicillins Allergy Anaphylaxis Verified 05/04/21 21:05 Physical Exam Vitals: Vital Signs Temp Pulse Resp BP Pulse Ox 05/04/21 22:31 76 16 108/65 95 05/04/21 18:48 98 F 63 20 103/45 97 Intake and Output 05/04/21 05/04/21 05/04/21 06:59 14:59 22:59 Other: Weight 81.647 kg Constitutional: No acute distress, conversant, pleasant Eyes: Anicteric sclerae, moist conjunctiva, Pupils equal round reactive to light ENMT: NC/AT Oropharynx clear, no erythema, or exudates Neck: Supple, FROM, no masses, or JVD No carotid bruits No thyromegaly Lungs: Clear to auscultation Clear to percussion Normal respiratory effort, no accessory muscle use Cardiovascular: Heart regular in rate and rhythm, No murmurs, gallops, or rubs No peripheral edema Abdominal: Soft Tenderness to deep palpation of the right upper quadrant with altered guarding, no rebound or rigidity Abdomen moving with respiration Normoactive bowel sounds No hepatomegaly, No splenomegaly No palpable mass No abdominal wall hernia noted Skin: Normal temperature, tone, texture, turgor No induration No subcutaneous nodules No rash, lesions No ulcers Extremities: No digital cyanosis No clubbing Pedal pulses intact and symmetrical Radial pulses intact and symmetrical No calf tenderness Psychiatric: Alert and oriented to person, place Neuro Muscles Strength 4/5 in all 4 extremities Sensation to light touch grossly present throughout Cranial nerves II-XII grossly intact Lymphatics: no palpable cervical or supraclavicular , or inguinal lymph nodes Results CBC & Chem 7: 05/04/21 23:00 05/04/21 19:25 Labs: Abnormal Lab Results - Last 24 Hours (Table) 05/04/21 05/04/21 Range/Units 19:25 19:25 RBC 4.18 L (4.30-5.90) m/uL MCV 103.3 H (80.0-100.0) fL Plt Count 104 L (150-450) k/uL Monocytes # 1.3 H (0-1.0) k/uL Chloride 108 H (98-107) mmol/L Carbon Dioxide 21 L (22-30) mmol/L Glucose 109 H (74-99) mg/dL AST 63 H (17-59) U/L Alkaline Phosphatase 272 H (38-126) U/L Total Protein 8.3 H (6.3-8.2) g/dL Assessment and Plan Assessment: Right upper quadrant abdominal and possible bleeding site of liver biopsy Close monitoring of vital signs Trend hemoglobin Gen. surgery consultation Hold aspirin avoid blood thinners Avoid NSAIDs Chronic conditions Diabetes mellitus, hold oral hypoglycemic agents, insulin sliding scale Hypertension resume home medications CODE STATUS no code DVT prophylaxis with radical Anticipated length of stay less than 2 midnights
[2021-05-05 06:12] LABS: Glucose,Whole Blood 120 mg/dL (75-99)
[2021-05-05 07:22] LABS: Basophils # (A) 0.1 k/uL (0-0.2); Basophils % (A) 1 %; Eosinophils # (A) 0.2 k/uL (0-0.7); Eosinophils % (A) 2 %; HCT 40.8 % (39.0-53.0); HGB 13.1 gm/dL (13.0-17.5); Lymphocytes % (A) 25 %; MCH 33.6 pg (25.0-35.0); MCHC 32.1 g/dL (31.0-37.0); MCV 104.5 fL (80.0-100.0); Macrocytosis Moderate; Mean Platelet Volume 9.5; Monocytes # (A) 1.4 k/uL (0-1.0); Monocytes % (A) 18 %; Neutrophils % (A) 51 %; Platelet Count 113 k/uL (150-450); RDW 15.3 % (11.5-15.5); WBC 7.9 k/uL (3.8-10.6)
[2021-05-05] MEDS ORDERED: INSULIN ASPART (NovoLOG) 100 UNIT/ML VIAL SQ SCH (07:30)
[2021-05-05 08:13] VITALS: TEMP 97.7
[2021-05-05] MEDS ORDERED: PANTOPRAZOLE 40 MG TABLET PO SCH (09:00)
[2021-05-05] MEDS ORDERED: FUROSEMIDE 20 MG TAB PO SCH (09:30)
[2021-05-05] MEDS ORDERED: glipiZIDE 10 MG TAB PO SCH (09:30)
[2021-05-05 11:31] LABS: Glucose,Whole Blood 218 mg/dL (75-99)
[2021-05-05 11:51] VITALS: BP 119/63; PULSE 79; RESP 16
--- NOTE | 2021-05-05 17:49 | P.DS ---
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 Henderson Dyslipidemia Hypertension Hospital Course: Patient is a 89-year-old male past medical history of diabetes, hypertension, and colon cancer who presented to the ER with abdominal pain in the right upper quadrant 810 in severity. He underwent a CT abdomen and pelvis which demonstrated a perihepatic hemorrhage, multiple liver metastasis, and lower lobe metastatic lesions. He was admitted for perihepatic hemorrhage. He was monitored overnight and his hemoglobin remained stable. He was no longer having any abdominal pain. After surgical consultation however daughter did not feel he needed to be seen by surgery as she would not approve of patient undergoing surgery she felt he is too frail. Given his stable hemoglobin resolution of pain he was determined stable for discharge. Follow-up: Dr. Zaragoza next week, Dr. Henderson next week. Stay off of ibuprofen for the next 2 days as well as aspirin. Return to ER with recurrent lightheadedness, dizziness, and pain. Patient seen and examined at bedside. Feeling well. No additional pain. Feeling hungry. Patient was monitored and did tolerate a diet prior to discharge. Daughter was at bedside and all questions answered. Vital signs reviewed and stable. General: non toxic, no distress, appears at stated age Derm: warm, dry Head: atraumatic, normocephalic, symmetric, extremely hard of hearing Eyes: EOMI, no lid lag, anicteric sclera Mouth: no lip lesion, mucus membranes moist Cardiovascular: S1S2 reg, no murmur, positive posterior tibial pulse bilateral, Lungs: CTA bilateral, no rhonchi, no rales , no accessory muscle use Abdominal: soft, nontender to palpation, no guarding, no appreciable organomegaly Ext: no gross muscle atrophy, no edema, no contractures Neuro: CN II-XI grossly intact, no focal neuro deficits Psych: Alert, oriented, appropriate affect A total of 37 minutes of time were spent preparing this complex discharge summary . Patient Condition at Discharge: Stable Plan - Discharge Summary Discharge Rx Participant: Yes New Discharge Prescriptions: Continue glipiZIDE XL [Glucotrol XL] 10 mg PO BID Omeprazole 20 mg PO DAILY Furosemide [Lasix] 20 mg PO DAILY Enalapril Maleate 2.5 mg PO DAILY Atorvastatin [Lipitor] 10 mg PO HS Ferrous Sulfate [Iron (65 MG Elemental)] 325 mg PO DAILY Gabapentin [Neurontin] 100 mg PO HS Ibuprofen 200 mg PO Q8H PRN PRN Reason: Pain Discharge Medication List Enalapril Maleate 2.5 mg PO DAILY 07/06/20 [History] Furosemide [Lasix] 20 mg PO DAILY 07/06/20 [History] Omeprazole 20 mg PO DAILY 07/06/20 [History] glipiZIDE XL [Glucotrol XL] 10 mg PO BID 07/06/20 [History] Atorvastatin [Lipitor] 10 mg PO HS 12/30/20 [History] Ferrous Sulfate [Iron (65 MG Elemental)] 325 mg PO DAILY 03/04/21 [History] Gabapentin [Neurontin] 100 mg PO HS 04/14/21 [History] Ibuprofen 200 mg PO Q8H PRN 04/28/21 [History] Follow up Appointment(s)/Referral(s): Joey Zaragoza MD [Primary Care Provider] - 05/10/21 10:30 am Elmer Hnederson MD [STAFF PHYSICIAN] - 1 Week (office closed for lunch-please call and make an appt for 1 week followup) Patient Instructions/Handouts: Acute Abdominal Pain (DC) Activity/Diet/Wound Care/Special Instructions: Activity: as tolerated Diet: Carb consistent Special Instructions: No Ibuprofen for 2 days, then can resume as needed. Discharge Disposition: HOME SELF-CARE
[2021-05-05] MEDS ORDERED: GABAPENTIN 100 MG CAP PO SCH (21:00)
[2021-05-05] MEDS ORDERED: ATORVASTATIN 10 MG TAB PO SCH (21:00)
== END 2021-05-05 12:36 | disposition home or self-care (01) ==
LOC: EC 17:45 → 3SCARD 21:29
PROVIDERS: ADMIT Internal Medicine; ATTEND Internal Medicine
DX: K91.840 Postprocedural hemorrhage of a digestive system organ or structure following a digestive system procedure (principal); C18.9 Malignant neoplasm of colon, unspecified; C78.00 Secondary malignant neoplasm of unspecified lung; C78.7 Secondary malignant neoplasm of liver and intrahepatic bile duct; E11.9 Type 2 diabetes mellitus without complications; E78.5 Hyperlipidemia, unspecified; Z20.822 Contact with and (suspected) exposure to COVID-19; I10 Essential (primary) hypertension; F17.200 Nicotine dependence, unspecified, uncomplicated; H91.90 Unspecified hearing loss, unspecified ear; J45.909 Unspecified asthma, uncomplicated; Z79.4 Long term (current) use of insulin; Z79.899 Other long term (current) drug therapy; Z88.0 Allergy status to penicillin; Z79.84 Long term (current) use of oral hypoglycemic drugs; Z85.828 Personal history of other malignant neoplasm of skin; Z87.19 Personal history of other diseases of the digestive system
CPT/HCPCS: 99285; 96376; 96374; 36415; 86900; 86901; 80053; 82150; 83605; 83690; 85025 ×2; 85610; 85730; 86850; 87635; 74177; G0378 ×2; J2270 ×2; Q9967